=== PATIENT | male | born 1945 | race Caucasian/White ===

== ENCOUNTER 2017-07-04 10:50 | Inpatient (IN) | payer MEDICARE, MEDICAID ==
[~2017-07-04] VITALS: Ht 175.3 cm; Wt 68.0 kg
[2017-07-04] MEDS ORDERED: SODIUM CHLORIDE 0.9% 1,000 ML IV ONE (11:09)
[2017-07-04 11:42] LABS: CHLORIDE 110 mEq/L (98-107); INR 1.1; PROTHROMBIN TIME 11.4 sec (9.4-11.6)
[2017-07-04 11:47] LABS: BASOPHILS % 0.3 % (0.0-2.0); EOSINOPHILS % 0.4 % (0.0-5.0); HEMATOCRIT. 32.3 % (42.0-52.0); HEMOGLOBIN. 10.7 g/dL (14.0-18.0); LYMPHOCYTES % 10.9 % (20.0-50.0); MEAN CORPUSCULAR HEMOGLOBIN 28.7 pg (28.0-32.0); MEAN CORPUSCULAR VOLUME 86.7 fL (80.0-94.0); MEAN PLATELET VOLUME 8.8 fl (7.4-10.4); MONOCYTES % 5.9 % (2.0-8.0); NEUTROPHILS % 82.5 % (40.0-76.0); PLATELET 334 x1000/uL (130-400); RED BLOOD CELL COUNT 3.73 mill/uL (4.7-6.1)
[2017-07-04 12:49] LABS: CLARITY URINE CLEAR (CLEAR); COLOR URINE YELLOW (YELLOW); KETONES URINE TRACE (NEGATIVE); LEUKOCYTE ESTERASE URINE NEGATIVE (NEGATIVE); NITRITE URINE NEGATIVE (NEGATIVE); OCCULT BLOOD URINE 1+ (NEGATIVE); PROTEIN URINE 2+ (NEGATIVE); SPECIFIC GRAVITY URINE 1.021 (1.005-1.030)
[2017-07-04] MEDS ORDERED: ACETAMINOPHEN 325MG TABLET PO ONE (13:45)
[2017-07-04] MEDS ORDERED: LORAZEPAM 2MG/ML CPJ IV PRN (18:00)
[2017-07-04] MEDS ORDERED: ONDANSETRON HCL 4MG/2ML INJ IV PRN (18:00)
[2017-07-04] MEDS ORDERED: ACETAMINOPHEN 325MG TABLET PO PRN (18:00)
[2017-07-04] MEDS ORDERED: HYDROCODONE/ACETAMINOPHEN 5/325MG TABLET PO PRN (18:00)
[2017-07-04] MEDS ORDERED: DOCUSATE SODIUM 100MG CAPSULE PO PRN (18:00)
[2017-07-04] MEDS ORDERED: IPRATROPIUM/ALBUTEROL 0.5-3(2.5)MG/3ML NEB INH PRN (18:00)
[2017-07-04] MEDS ORDERED: GUAIFENESIN 200MG/10ML SUGAR FREE UDC PO PRN (18:00)
[2017-07-04] MEDS ORDERED: CLONIDINE 0.1MG TABLET PO PRN (18:00)
[2017-07-04] MEDS ORDERED: DIPHENHYDRAMINE 50MG/ML VIAL IV PRN (18:00)
[2017-07-04] MEDS ORDERED: MAGNESIUM/ALUMINUM HYDROXIDE/SIMETHICONE 30ML UDC PO PRN (18:00)
[2017-07-04] MEDS ORDERED: MORPHINE SULFATE 4 MG/ML CPJ (NOT FOR IM USE) IV PRN (18:15)
[2017-07-04] MEDS: SODIUM CHLORIDE 0.45% 1,000 ML IV SCH (18:52)
[2017-07-04] MEDS ORDERED: LEVOFLOXACIN 500MG PREMIX 100 ML IV NR (18:53)
[2017-07-04] MEDS ORDERED: NA PHOS,M-B/NA PHOS,DI-BA ENEMA 118ML PR PRN (20:00)
[2017-07-04 22:28] LABS: CHLORIDE 111 mEq/L (98-107)
[2017-07-05] VITALS (7 sets, daily range): BP systolic 130–164; BP diastolic 55–71
[2017-07-05] MEDS: SODIUM CHLORIDE 0.45% 1,000 ML IV SCH ×2 (03:56→12:09)
[2017-07-05 07:40] LABS: BASOPHILS % 0.3 % (0.0-2.0); EOSINOPHILS % 1.9 % (0.0-5.0); LYMPHOCYTES % 9.2 % (20.0-50.0); MEAN CORPUSCULAR HEMOGLOBIN 28.1 pg (28.0-32.0); MEAN CORPUSCULAR VOLUME 86.9 fL (80.0-94.0); MEAN PLATELET VOLUME 9.1 fl (7.4-10.4); MONOCYTES % 5.3 % (2.0-8.0); NEUTROPHILS % 83.3 % (40.0-76.0); PLATELET 316 x1000/uL (130-400); RED BLOOD CELL COUNT 3.92 mill/uL (4.7-6.1); RED CELL DISTRIBUTION WIDTH 14.1 % (11.6-14.6)
[2017-07-05 08:23] LABS: CHLORIDE 109 mEq/L (98-107)
[2017-07-05 08:39] LABS: HDL CHOLESTEROL 27 mg/dL (40-59); LDL CHOLESTEROL 64 mg/dL (5-100)
[2017-07-05] MEDS: ASPIRIN 81MG EC TABLET PO SCH (09:54)
[2017-07-05] MEDS: ENOXAPARIN 40MG/0.4ML SYR SUBCUT SCH (09:55)
[2017-07-05] MEDS ORDERED: LEVOFLOXACIN 500MG PREMIX 100 ML IV SCH (19:00)
[2017-07-05] MEDS ORDERED: HYDR-4005 PO (19:17)
[2017-07-05] MEDS ORDERED: QUET25TA PO (19:17)
[2017-07-05] MEDS ORDERED: LEVO50TA8 PO (19:17)
[2017-07-05] MEDS ORDERED: DOCU-150 PO (19:17)
[2017-07-05] MEDS ORDERED: CYCL5TAB PO (19:17)
[2017-07-05] MEDS ORDERED: LANTUSUD SUBCUT (19:17)
[2017-07-05] MEDS ORDERED: BENA20TA10 PO (19:17)
[2017-07-05] MEDS ORDERED: FAMO20TA8 PO (19:17)
[2017-07-05] MEDS ORDERED: ASPI-1159 PO (19:17)
[2017-07-05] MEDS ORDERED: DIVAL250 PO ×2 (19:17)
[2017-07-05] MEDS ORDERED: GABA800T97 PO (19:17)
[2017-07-05] MEDS ORDERED: SENN-22 PO (19:17)
[2017-07-05] MEDS ORDERED: GLIP2.5T3 PO (19:17)
[2017-07-05] MEDS ORDERED: HYDR-4001 PO (19:17)
[2017-07-05] MEDS ORDERED: ATOR40TA70 PO (19:17)
[2017-07-05] MEDS ORDERED: DEXTROSE 50% WATER 50ML SYRINGE IV PRN (20:15)
[2017-07-05] MEDS: BLOOD SUGAR DIAGNOSTIC STRIP TEST SCH (21:00)
[2017-07-05] MEDS: INSULIN LISPRO 100 UNITS/ML SUBCUT SCH (21:25)
[2017-07-06] VITALS: BP 109/70
[2017-07-06 04:00] VITALS: BP 146/59
[2017-07-06] MEDS: BLOOD SUGAR DIAGNOSTIC STRIP TEST SCH ×2 (06:06→12:37)
[2017-07-06] MEDS: INSULIN LISPRO 100 UNITS/ML SUBCUT SCH ×2 (06:06→12:52)
[2017-07-06] MEDS: SODIUM CHLORIDE 0.45% 1,000 ML IV SCH (06:06)
[2017-07-06] MEDS: ENOXAPARIN 40MG/0.4ML SYR SUBCUT SCH (09:23)
[2017-07-06] MEDS: ASPIRIN 81MG EC TABLET PO SCH (09:23)
[2017-07-06 12:08] VITALS: BP 151/66
== END 2017-07-06 14:45 | DRG 871 ==
LOC: ER 11:16 → 5WST 14:09 → EDBEDREQTM 14:10 → EDBEDREQ 14:10 → ENRESERV 22:33
PROVIDERS: ADMIT Internal Medicine; ATTEND Internal Medicine
DX: A41.9 Sepsis, unspecified organism (principal); G93.41 Metabolic encephalopathy; N17.0 Acute kidney failure with tubular necrosis; E46 Unspecified protein-calorie malnutrition; E87.0 Hyperosmolality and hypernatremia; E11.9 Type 2 diabetes mellitus without complications; E86.0 Dehydration; I10 Essential (primary) hypertension; J44.9 Chronic obstructive pulmonary disease, unspecified; Z79.82 Long term (current) use of aspirin; Z79.899 Other long term (current) drug therapy; Z68.22 Body mass index [BMI] 22.0-22.9, adult
CPT/HCPCS: 36415; 71045; 80048; 80061; 82962; 83605; 84484; 93005; 96361; 96365; 99285; A4565; J1650; J1815; J1956; J7030; A4315

== ENCOUNTER 2018-09-26 14:15 | Inpatient (IN) | payer MEDICARE, MEDICAID ==
[~2018-09-26] VITALS: Ht 175.3 cm; Wt 55.8 kg
[~2018-09-26 14:15] MED LIST: ASPI-1159 PO; ATOR40TA70 PO; BENA20TA10 PO; CYCL5TAB PO; DIVAL250 PO; DOCU-150 PO; FAMO20TA8 PO; GABA800T97 PO; GLIP2.5T3 PO; HYDR-4001 PO; HYDR-4005 PO; LANTUSUD SUBCUT; LEVO50TA8 PO; QUET25TA PO; SENN-22 PO
[2018-09-26] MEDS ORDERED: METHYLPREDNISOLONE SOD SUCC 125 MG/2 ML VIAL IV STA (14:26)
[2018-09-26] MEDS ORDERED: IPRATROPIUM BROMIDE (0.02%) 0.5MG/2.5ML NEB HHN STA (14:26)
[2018-09-26] MEDS ORDERED: ALBUTEROL (0.083%) 2.5MG/3ML NEB HHN STA (14:26)
[2018-09-26] MEDS ORDERED: VANCOMYCIN 1 G PREMIX 200 ML IV ONE (14:30)
[2018-09-26] MEDS ORDERED: PIPERACILLIN/TAZ 3.375G PREMIX 50 ML IV ONE (14:30)
[2018-09-26] MEDS ORDERED: SODIUM CHLORIDE 0.9% 1000ML BAG (SEPSIS BOLUS) IV ONE (14:30)
[2018-09-26 14:42] LABS: BASOPHILS % 1.2 % (0.0-2.0); EOSINOPHILS % 0.4 % (0.0-5.0); HEMATOCRIT. 34.9 % (42.0-52.0); HEMOGLOBIN. 11.4 g/dL (14.0-18.0); LYMPHOCYTES % 17.3 % (20.0-50.0); MEAN CORPUSCULAR HEMOGLOBIN 29.1 pg (28.0-32.0); MEAN CORPUSCULAR VOLUME 89.1 fL (80.0-94.0); MEAN PLATELET VOLUME 9.5 fl (7.4-10.4); MONOCYTES % 5.3 % (2.0-8.0); NEUTROPHILS % 75.8 % (40.0-76.0); PLATELET 236 x1000/uL (130-400); RED BLOOD CELL COUNT 3.92 mill/uL (4.7-6.1); RED CELL DISTRIBUTION WIDTH 14.4 % (11.6-14.6)
[2018-09-26 14:45] LABS: CHLORIDE 112 mEq/L (98-107)
[2018-09-26 14:48] LABS: PARTIAL THROMBOPLASTIN TIME 20.7 sec (23.4-31.0); PROTHROMBIN TIME 9.9 sec (9.6-11.0)
[2018-09-26 15:33] LABS: BG BASE EXCESS -3.9 mmol/L (-2.0-2.0); BG BILEVEL POS AIRWAY PRESSURE ST=15/5; BG CARBOXYHEMOGLOBIN 0.3 % (0.5-1.5); BG DEOXYHEMOGLOBIN 3.9 % (0.0-5.0); BG FRACTION INSPIRED OXYGEN 60; BG HCO3 ACT 20.5 mmol/L (22.0-26.0); BG METHEMOGLOBIN 0.1 % (0.0-1.5); BG OXYGEN SATURATION 96.1 % (92.0-98.5); BG OXYHEMOGLOBIN 95.7 % (94.0-97.0); BG PH 7.386 (7.350-7.450); BG PO2 89.6 mmHg (75.0-100.0); BG PRESSURE SUPPORT 10; BG SAMPLE SITE RIGHT RADIAL; BG TOTAL HEMOGLOBIN 11.4 g/dL (12.0-18.0); BG VENT MODE MASK - BIPAP; BG VENT RATE 16 set
[2018-09-26 15:33] LABS: CLARITY URINE TURBID (CLEAR); COLOR URINE YELLOW (YELLOW); KETONES URINE TRACE (NEGATIVE); LEUKOCYTE ESTERASE URINE 3+ (NEGATIVE); NITRITE URINE NEGATIVE (NEGATIVE); OCCULT BLOOD URINE 3+ (NEGATIVE); PROTEIN URINE 2+ (NEGATIVE); SPECIFIC GRAVITY URINE 1.016 (1.005-1.030); UROBILINOGEN URINE 0.2 E.U./dL (0.2-1.0)
[2018-09-26] MEDS ORDERED: IPRATROPIUM/ALBUTEROL 0.5-3(2.5)MG/3ML NEB HHN PRN (16:30)
[2018-09-26] MEDS ORDERED: MEROPENEM 500 MG in SODIUM CHLORIDE 0.9% 50 ML IV SCH (16:30)
[2018-09-26] MEDS ORDERED: SODIUM CHLORIDE 10% FOR INH 15ML VIAL NEB INH SCH (16:30)
[2018-09-26] MEDS ORDERED: BUDESONIDE 0.5MG/2ML NEB HHN SCH (16:30)
[2018-09-26] MEDS ORDERED: ONDANSETRON HCL 4MG/2ML INJ IV PRN (19:15)
[2018-09-26] MEDS ORDERED: ACETAMINOPHEN 325MG TABLET PO PRN (19:15)
[2018-09-26] MEDS ORDERED: HYDROCODONE/ACETAMINOPHEN 5/325MG TABLET PO PRN (19:15)
[2018-09-26] MEDS ORDERED: CLONIDINE 0.1MG TABLET PO PRN (19:15)
[2018-09-26] MEDS ORDERED: GUAIFENESIN 200MG/10ML SUGAR FREE UDC PO PRN (19:15)
[2018-09-26] MEDS ORDERED: DOCUSATE SODIUM 100MG CAPSULE PO PRN (19:15)
[2018-09-26] MEDS ORDERED: HYDRALAZINE 20MG/ML VIAL IV PRN (19:15)
[2018-09-26] MEDS ORDERED: MAGNESIUM/ALUMINUM HYDROXIDE/SIMETHICONE 30ML UDC PO PRN (19:15)
[2018-09-26] MEDS: IPRATROPIUM/ALBUTEROL 0.5-3(2.5)MG/3ML NEB HHN SCH (20:56)
[2018-09-26] MEDS ORDERED: NA PHOS,M-B/NA PHOS,DI-BA ENEMA 118ML PR PRN (22:00)
[2018-09-26] MEDS ORDERED: HYDROMORPHONE HCL/PF 2MG/ML CPJ IV PRN (22:00)
[2018-09-26 23:32] LABS: CREATINE KINASE 160 IU/L (39-308)
[2018-09-26 23:33] LABS: CREATINE KINASE MB FRACTION 2.9 ng/mL (0.5-3.6)
[2018-09-27] VITALS (7 sets, daily range): BP systolic 91–130; BP diastolic 35–66
[2018-09-27] MEDS: IPRATROPIUM/ALBUTEROL 0.5-3(2.5)MG/3ML NEB HHN SCH ×6 (01:30→21:29)
[2018-09-27] MEDS ORDERED: SODIUM CHLORIDE 10% FOR INH 15ML VIAL NEB INH SCH (02:00)
[2018-09-27] MEDS: MEROPENEM 1,000 MG in SODIUM CHLORIDE 0.9% 100 ML IV SCH ×2 (04:49→17:27)
[2018-09-27] MEDS: SODIUM CHLORIDE 0.9% INJ 3ML FLUSH IVF SCH ×3 (06:10→23:54)
[2018-09-27 06:12] LABS: HEMATOCRIT. 30.3 % (42.0-52.0); HEMOGLOBIN. 10.1 g/dL (14.0-18.0); MEAN CORPUSCULAR HEMOGLOBIN 29.9 pg (28.0-32.0); MEAN CORPUSCULAR VOLUME 89.8 fL (80.0-94.0); MEAN PLATELET VOLUME 9.9 fl (7.4-10.4); PLATELET 199 x1000/uL (130-400); RED BLOOD CELL COUNT 3.37 mill/uL (4.7-6.1); RED CELL DISTRIBUTION WIDTH 14.4 % (11.6-14.6)
[2018-09-27 08:33] LABS: CHLORIDE 113 mEq/L (98-107)
[2018-09-27 08:41] LABS: LDL CHOLESTEROL 67 mg/dL (5-100)
[2018-09-27 08:42] LABS: CREATINE KINASE 158 IU/L (39-308)
[2018-09-27 08:43] LABS: CREATINE KINASE MB FRACTION 2.7 ng/mL (0.5-3.6)
[2018-09-27 08:44] LABS: HDL CHOLESTEROL 36 mg/dL (40-59); T4 FREE 1.11 ng/dL (0.76-1.46)
[2018-09-27] MEDS: ACETYLCYSTEINE 100MG/ML 10% VIAL 4ML INH SCH ×2 (08:50→17:10)
[2018-09-27] MEDS: BUDESONIDE 0.5MG/2ML NEB HHN SCH ×2 (08:51→21:29)
[2018-09-27 09:35] LABS: CREATINE KINASE 171 IU/L (39-308)
[2018-09-27] MEDS: ENOXAPARIN 40MG/0.4ML SYR SUBCUT SCH (11:14)
[2018-09-27 11:30] LABS: PLATELET ESTIMATE NORMAL
[2018-09-27] MEDS ORDERED: VANCOMYCIN 1250MG in DEXTROSE 5% WATER 250ML IV SCH (12:00)
[2018-09-27] MEDS ORDERED: DEXTROSE 50% WATER 50ML SYRINGE IV PRN (12:00)
[2018-09-27] MEDS: INSULIN LISPRO 100 UNITS/ML SUBCUT SCH ×3 (12:15→23:54)
[2018-09-27] MEDS: VANCOMYCIN 750 MG PREMIX 150 ML IV SCH ×2 (12:37→21:48)
[2018-09-27] MEDS: NEOMY SULF/BACITRAC ZN/POLY OINT 28GM TOP SCH (12:41)
[2018-09-27] MEDS: SODIUM CHLORIDE 0.45% 1,000 ML IV SCH ×2 (12:47→23:55)
[2018-09-27] MEDS: BLOOD SUGAR DIAGNOSTIC STRIP TEST SCH ×2 (17:27→23:54)
[2018-09-28] VITALS: BP 108/58
[2018-09-28] MEDS: DIPHENHYDRAMINE 50MG/ML VIAL IV PRN (00:06)
[2018-09-28] MEDS: ACETYLCYSTEINE 100MG/ML 10% VIAL 4ML INH SCH ×3 (01:16→17:26)
[2018-09-28] MEDS: IPRATROPIUM/ALBUTEROL 0.5-3(2.5)MG/3ML NEB HHN SCH ×5 (01:16→17:25)
[2018-09-28] MEDS: MEROPENEM 1,000 MG in SODIUM CHLORIDE 0.9% 100 ML IV SCH ×2 (03:11→13:54)
[2018-09-28 04:00] VITALS: BP 120/56
[2018-09-28] MEDS: SODIUM CHLORIDE 0.9% INJ 3ML FLUSH IVF SCH ×2 (06:27→14:30)
[2018-09-28] MEDS: BLOOD SUGAR DIAGNOSTIC STRIP TEST SCH ×4 (06:27→20:47)
[2018-09-28] MEDS: INSULIN LISPRO 100 UNITS/ML SUBCUT SCH ×4 (06:39→20:52)
[2018-09-28 08:00] VITALS: BP_SYST 132; BP_SYST 147; BP_DIAS 59; BP_DIAS 75
[2018-09-28] MEDS: NEOMY SULF/BACITRAC ZN/POLY OINT 28GM TOP SCH (09:28)
[2018-09-28] MEDS: ENOXAPARIN 40MG/0.4ML SYR SUBCUT SCH (09:31)
[2018-09-28] MEDS: LORAZEPAM 2MG/ML CPJ IV PRN ×2 (09:33→18:47)
[2018-09-28] MEDS: BUDESONIDE 0.5MG/2ML NEB HHN SCH (10:27)
[2018-09-28 12:00] VITALS: BP 113/56
[2018-09-28] MEDS: SODIUM CHLORIDE 0.45% 1,000 ML IV SCH (12:18)
[2018-09-28 12:57] LABS: BASOPHILS % 0.6 % (0.0-2.0); EOSINOPHILS % 1.9 % (0.0-5.0); HEMATOCRIT. 27.6 % (42.0-52.0); HEMOGLOBIN. 9.2 g/dL (14.0-18.0); LYMPHOCYTES % 17.1 % (20.0-50.0); MEAN CORPUSCULAR HEMOGLOBIN 29.6 pg (28.0-32.0); MEAN CORPUSCULAR VOLUME 88.5 fL (80.0-94.0); MEAN PLATELET VOLUME 9.5 fl (7.4-10.4); MONOCYTES % 4.7 % (2.0-8.0); NEUTROPHILS % 75.7 % (40.0-76.0); PLATELET 203 x1000/uL (130-400); RED BLOOD CELL COUNT 3.11 mill/uL (4.7-6.1); RED CELL DISTRIBUTION WIDTH 14.6 % (11.6-14.6)
[2018-09-28 13:10] LABS: CHLORIDE 111 mEq/L (98-107)
[2018-09-28] MEDS ORDERED: VANCOMYCIN 750 MG PREMIX 150 ML IV SCH ×2 (14:00→18:00)
[2018-09-28 15:14] LABS: ANTI-NUCLEAR ANTIBODIES DIRECT Positive (Negative)
[2018-09-28 16:00] VITALS: BP 147/75
[2018-09-28 20:00] VITALS: BP 151/80
[2018-09-29] VITALS: BP 137/95
[2018-09-29] MEDS: LORAZEPAM 2MG/ML CPJ IV PRN ×3 (00:04→12:11)
[2018-09-29] MEDS: SODIUM CHLORIDE 0.45% 1,000 ML IV SCH (00:06)
[2018-09-29] MEDS: BUDESONIDE 0.5MG/2ML NEB HHN SCH (01:14)
[2018-09-29] MEDS: ACETYLCYSTEINE 100MG/ML 10% VIAL 4ML INH SCH ×2 (01:14→08:08)
[2018-09-29] MEDS: IPRATROPIUM/ALBUTEROL 0.5-3(2.5)MG/3ML NEB HHN SCH ×3 (01:15→12:00)
[2018-09-29] MEDS: MEROPENEM 1,000 MG in SODIUM CHLORIDE 0.9% 100 ML IV SCH (02:36)
[2018-09-29 04:00] VITALS: BP 136/89
[2018-09-29] MEDS: BLOOD SUGAR DIAGNOSTIC STRIP TEST SCH ×2 (06:09→11:54)
[2018-09-29] MEDS: INSULIN LISPRO 100 UNITS/ML SUBCUT SCH ×2 (06:13→12:15)
[2018-09-29 06:20] LABS: CHLORIDE 106 mEq/L (98-107)
[2018-09-29 06:36] LABS: BASOPHILS % 1.1 % (0.0-2.0); EOSINOPHILS % 2.9 % (0.0-5.0); HEMOGLOBIN. 10.5 g/dL (14.0-18.0); LYMPHOCYTES % 18.6 % (20.0-50.0); MEAN CORPUSCULAR HEMOGLOBIN 30.1 pg (28.0-32.0); MEAN CORPUSCULAR VOLUME 88.5 fL (80.0-94.0); MEAN PLATELET VOLUME 9.5 fl (7.4-10.4); MONOCYTES % 5.4 % (2.0-8.0); PLATELET 217 x1000/uL (130-400); RED CELL DISTRIBUTION WIDTH 13.7 % (11.6-14.6)
[2018-09-29 06:37] LABS: HEMATOCRIT. 30.9 % (42.0-52.0)
[2018-09-29 07:19] LABS: COMPLEMENT C3 122 mg/dL (82-167)
[2018-09-29 08:00] VITALS: BP 117/71
[2018-09-29] MEDS: ENOXAPARIN 40MG/0.4ML SYR SUBCUT SCH (08:26)
[2018-09-29] MEDS: NEOMY SULF/BACITRAC ZN/POLY OINT 28GM TOP SCH (08:26)
[2018-09-29] MEDS: DIPHENHYDRAMINE 50MG/ML VIAL IV PRN (09:46)
[2018-09-29 12:00] VITALS: BP 121/80
[2018-09-29] MEDS ORDERED: QUETIAPINE FUMARATE 25MG TABLET PO SCH (12:45)
[2018-09-29 14:15] VITALS: BP 152/56
== END 2018-09-29 17:00 | DRG 871 ==
LOC: ER 14:15 → 5WST 17:37 → EDBEDREQ 17:43 → ENRESERV 20:55 → CANRESERV 20:55 → EDBEDREQSVC 21:05 → ENRESERV 22:38 → 5WST 09-27 00:37
PROVIDERS: ADMIT Internal Medicine; ATTEND Internal Medicine
PROC: 5A09357 Assistance with Respiratory Ventilation, Less than 24 Consecutive Hours, Continuous Positive Airway Pressure (ICD-10-PCS; principal; 2018-09-26)
DX: A41.51 Sepsis due to Escherichia coli [E. coli] (principal); J96.01 Acute respiratory failure with hypoxia; N17.0 Acute kidney failure with tubular necrosis; G93.41 Metabolic encephalopathy; R65.21 Severe sepsis with septic shock; N39.0 Urinary tract infection, site not specified; J44.1 Chronic obstructive pulmonary disease with (acute) exacerbation; E87.2 Acidosis; E44.0 Moderate protein-calorie malnutrition; Z68.1 Body mass index [BMI] 19.9 or less, adult; Z74.01 Bed confinement status; B96.89 Other specified bacterial agents as the cause of diseases classified elsewhere; D64.9 Anemia, unspecified; E03.9 Hypothyroidism, unspecified; E11.22 Type 2 diabetes mellitus with diabetic chronic kidney disease; E11.621 Type 2 diabetes mellitus with foot ulcer; E11.65 Type 2 diabetes mellitus with hyperglycemia; E78.5 Hyperlipidemia, unspecified; L97.519 Non-pressure chronic ulcer of other part of right foot with unspecified severity; E86.9 Volume depletion, unspecified; I12.9 Hypertensive chronic kidney disease with stage 1 through stage 4 chronic kidney disease, or unspecified chronic kidney disease; R65.20 Severe sepsis without septic shock; I49.3 Ventricular premature depolarization; N18.9 Chronic kidney disease, unspecified; Z16.12 Extended spectrum beta lactamase (ESBL) resistance; E87.70 Fluid overload, unspecified; Z79.1 Long term (current) use of non-steroidal anti-inflammatories (NSAID); Z79.899 Other long term (current) drug therapy; Z79.82 Long term (current) use of aspirin
CPT/HCPCS: 36415; 36600; 71045; 76770; 80048; 80061; 80202; 82375; 82550; 82553; 82805; 82962; 83605; 83880; 84145; 84439; 84443; 84484; 86038; 86160; 87077; 87186; 93005; 93971; 94640; 96374; 96375; 97161; 99285; A6261; J0360; J1170; J1200; J1650; J1815; J2060; J2185; J2543; J2930; J3370; J7030; J7050; J7060; J7131; J7608; J7611; J7620; J7626; A4315

== ENCOUNTER 2018-10-25 15:15 | Inpatient (IN) | payer MEDICARE, MEDICAID ==
[~2018-10-25] VITALS: Ht 193 cm; Wt 48.7 kg
[~2018-10-25 15:15] MED LIST changes: -ASPI-1159 PO; +ASPI-1393 PO
[2018-10-25] MEDS ORDERED: SODIUM CHLORIDE 0.9% 500 ML IV ONE (16:08)
[2018-10-25 16:40] LABS: BASOPHILS % 1.1 % (0.0-2.0); EOSINOPHILS % 3.1 % (0.0-5.0); HEMATOCRIT. 34.3 % (42.0-52.0); HEMOGLOBIN. 11.3 g/dL (14.0-18.0); LYMPHOCYTES % 28.7 % (20.0-50.0); MEAN CORPUSCULAR HEMOGLOBIN 29.8 pg (28.0-32.0); MEAN CORPUSCULAR VOLUME 90.4 fL (80.0-94.0); MEAN PLATELET VOLUME 8.9 fl (7.4-10.4); MONOCYTES % 8.4 % (2.0-8.0); NEUTROPHILS % 58.7 % (40.0-76.0); PLATELET 257 x1000/uL (130-400); RED BLOOD CELL COUNT 3.79 mill/uL (4.7-6.1); RED CELL DISTRIBUTION WIDTH 14.1 % (11.6-14.6)
[2018-10-25 16:49] LABS: CHLORIDE 112 mEq/L (98-107)
[2018-10-25] MEDS ORDERED: ACETAMINOPHEN 325MG TABLET PO PRN (19:00)
[2018-10-25] MEDS ORDERED: CLONIDINE 0.1MG TABLET PO PRN (19:00)
[2018-10-25] MEDS ORDERED: HYDROCODONE/ACETAMINOPHEN 10/325MG TABLET PO PRN (19:00)
[2018-10-25] MEDS ORDERED: ONDANSETRON HCL 4MG/2ML INJ IV PRN (19:00)
[2018-10-25] MEDS ORDERED: DOCUSATE SODIUM 100MG CAPSULE PO PRN (19:00)
[2018-10-25] MEDS ORDERED: GUAIFENESIN 200MG/10ML SUGAR FREE UDC PO PRN (19:00)
[2018-10-25] MEDS ORDERED: DIPHENHYDRAMINE 50MG/ML VIAL IV PRN (19:00)
[2018-10-25] MEDS ORDERED: MAGNESIUM/ALUMINUM HYDROXIDE/SIMETHICONE 30ML UDC PO PRN (19:00)
[2018-10-25] MEDS ORDERED: NA PHOS,M-B/NA PHOS,DI-BA ENEMA 118ML PR PRN (19:00)
[2018-10-25] MEDS ORDERED: IPRATROPIUM/ALBUTEROL 0.5-3(2.5)MG/3ML NEB INH PRN (19:00)
[2018-10-25] MEDS ORDERED: HYDRALAZINE 20MG/ML VIAL IV PRN (19:00)
[2018-10-25] MEDS ORDERED: DEXTROSE 50% WATER 50ML SYRINGE IV PRN (19:30)
[2018-10-25 21:30] VITALS: BP 119/99
[2018-10-25] MEDS ORDERED: HYDROMORPHONE HCL/PF 2MG/ML CPJ IV PRN (22:28)
[2018-10-25] MEDS: BLOOD SUGAR DIAGNOSTIC STRIP TEST SCH (22:50)
[2018-10-25] MEDS: INSULIN LISPRO 100 UNITS/ML SUBCUT SCH (23:04)
[2018-10-25] MEDS: SODIUM CHLORIDE 0.9% INJ 3ML FLUSH IVF SCH (23:05)
[2018-10-25] MEDS: DEXTROSE 5% WATER 1,000 ML IV SCH (23:05)
[2018-10-25 23:14] VITALS: BP 119/99
[2018-10-26] VITALS: BP 115/88
[2018-10-26 00:08] LABS: CLARITY URINE TURBID (CLEAR); COLOR URINE YELLOW (YELLOW); KETONES URINE NEGATIVE (NEGATIVE); LEUKOCYTE ESTERASE URINE 3+ (NEGATIVE); NITRITE URINE NEGATIVE (NEGATIVE); OCCULT BLOOD URINE TRACE (NEGATIVE); PH URINE 8.5 (4.5-8.0); PROTEIN URINE 2+ (NEGATIVE); SPECIFIC GRAVITY URINE 1.019 (1.005-1.030); UROBILINOGEN URINE 0.2 E.U./dL (0.2-1.0)
[2018-10-26] MEDS ORDERED: GABA800T97 PO (02:44)
[2018-10-26] MEDS ORDERED: SENN8.6T60 PO (02:44)
[2018-10-26] MEDS ORDERED: HYDR-4001 PO (02:44)
[2018-10-26] MEDS ORDERED: INSU100I28 SQ (02:44)
[2018-10-26] MEDS ORDERED: BENA20TA10 PO (02:44)
[2018-10-26] MEDS ORDERED: ASA5EC PO (02:44)
[2018-10-26] MEDS ORDERED: DOCU-150 PO (02:44)
[2018-10-26] MEDS ORDERED: FAMO20TA8 PO (02:44)
[2018-10-26] MEDS ORDERED: ATOR40TA70 PO (02:44)
[2018-10-26] MEDS ORDERED: HYDR-4005 PO (02:44)
[2018-10-26] MEDS ORDERED: QUET25TA PO (02:44)
[2018-10-26] MEDS ORDERED: CYCL5TAB PO (02:44)
[2018-10-26] MEDS ORDERED: DIVA-73 PO ×2 (02:44)
[2018-10-26] MEDS ORDERED: LEVO50TA8 PO (02:44)
[2018-10-26 04:00] VITALS: BP_SYST 108; BP_SYST 122; BP_DIAS 65; BP_DIAS 99
[2018-10-26] MEDS: SODIUM CHLORIDE 0.9% INJ 3ML FLUSH IVF SCH ×3 (06:01→21:26)
[2018-10-26 06:48] LABS: BASOPHILS % 0.7 % (0.0-2.0); EOSINOPHILS % 3.3 % (0.0-5.0); HEMATOCRIT. 30.5 % (42.0-52.0); HEMOGLOBIN. 10.1 g/dL (14.0-18.0); LYMPHOCYTES % 23.3 % (20.0-50.0); MEAN CORPUSCULAR HEMOGLOBIN 30.2 pg (28.0-32.0); MEAN CORPUSCULAR VOLUME 91.2 fL (80.0-94.0); MEAN PLATELET VOLUME 9.4 fl (7.4-10.4); MONOCYTES % 7.5 % (2.0-8.0); NEUTROPHILS % 65.2 % (40.0-76.0); PLATELET 254 x1000/uL (130-400); RED BLOOD CELL COUNT 3.35 mill/uL (4.7-6.1)
[2018-10-26 07:11] LABS: CHLORIDE 110 mEq/L (98-107)
[2018-10-26 07:39] LABS: LDL CHOLESTEROL 78 mg/dL (5-100)
[2018-10-26 07:40] LABS: CREATINE KINASE 47 IU/L (39-308); CREATINE KINASE MB FRACTION 2.1 ng/mL (0.5-3.6); T4 FREE 0.94 ng/dL (0.76-1.46)
[2018-10-26] MEDS: BLOOD SUGAR DIAGNOSTIC STRIP TEST SCH ×4 (07:40→21:25)
[2018-10-26 07:42] LABS: HDL CHOLESTEROL 23 mg/dL (40-59)
[2018-10-26 08:00] VITALS: BP 104/55
[2018-10-26] MEDS: INSULIN LISPRO 100 UNITS/ML SUBCUT SCH ×4 (09:46→21:00)
[2018-10-26] MEDS: ENOXAPARIN 40MG/0.4ML SYR SUBCUT SCH (11:49)
[2018-10-26 12:00] VITALS: BP 100/49
[2018-10-26] MEDS: LORAZEPAM 2MG/ML CPJ IV PRN ×2 (12:36→23:30)
[2018-10-26 16:00] VITALS: BP 103/60
[2018-10-26 16:57] LABS: PHOSPHORUS 3.3 mg/dL (2.5-4.9)
[2018-10-26] MEDS: DEXTROSE 5% WATER 1,000 ML IV SCH (19:46)
[2018-10-26 20:00] VITALS: BP 110/55
[2018-10-27] VITALS: BP 95/44
[2018-10-27 04:00] VITALS: BP 123/57
[2018-10-27 05:30] LABS: BASOPHILS % 1.1 % (0.0-2.0); EOSINOPHILS % 4.6 % (0.0-5.0); HEMATOCRIT. 30.8 % (42.0-52.0); HEMOGLOBIN. 10.4 g/dL (14.0-18.0); LYMPHOCYTES % 26.1 % (20.0-50.0); MEAN CORPUSCULAR HEMOGLOBIN 30.1 pg (28.0-32.0); MEAN CORPUSCULAR VOLUME 89.4 fL (80.0-94.0); MEAN PLATELET VOLUME 9.5 fl (7.4-10.4); MONOCYTES % 8.4 % (2.0-8.0); NEUTROPHILS % 59.8 % (40.0-76.0); PLATELET 252 x1000/uL (130-400); RED BLOOD CELL COUNT 3.45 mill/uL (4.7-6.1); RED CELL DISTRIBUTION WIDTH 13.5 % (11.6-14.6)
[2018-10-27] MEDS: SODIUM CHLORIDE 0.9% INJ 3ML FLUSH IVF SCH ×3 (06:41→22:04)
[2018-10-27] MEDS: BLOOD SUGAR DIAGNOSTIC STRIP TEST SCH ×4 (06:41→21:00)
[2018-10-27 08:00] VITALS: BP 125/86
[2018-10-27] MEDS: ENOXAPARIN 40MG/0.4ML SYR SUBCUT SCH (09:30)
[2018-10-27] MEDS: INSULIN LISPRO 100 UNITS/ML SUBCUT SCH ×4 (09:31→21:00)
[2018-10-27 12:00] VITALS: BP 132/67
[2018-10-27] MEDS: LORAZEPAM 2MG/ML CPJ IV PRN ×3 (12:23→22:03)
[2018-10-27] MEDS: DEXTROSE 5% WATER 1,000 ML IV SCH (16:37)
[2018-10-27 20:00] VITALS: BP 147/89
[2018-10-28] VITALS (8 sets, daily range): BP systolic 114–151; BP diastolic 54–81
[2018-10-28] MEDS: LORAZEPAM 2MG/ML CPJ IV PRN (02:07)
[2018-10-28] MEDS: SODIUM CHLORIDE 0.9% INJ 3ML FLUSH IVF SCH ×2 (06:57→14:00)
[2018-10-28] MEDS: BLOOD SUGAR DIAGNOSTIC STRIP TEST SCH ×3 (06:57→16:59)
[2018-10-28] MEDS: ENOXAPARIN 40MG/0.4ML SYR SUBCUT SCH (08:15)
[2018-10-28] MEDS: INSULIN LISPRO 100 UNITS/ML SUBCUT SCH ×3 (08:16→18:10)
[2018-10-28] MEDS ORDERED: SULFAMETHOXAZOLE/TRIMETHOPRIM 800/160MG TABLET PO SCH (09:00)
[2018-10-28] MEDS: DEXTROSE 5% WATER 1,000 ML IV SCH (17:00)
== END 2018-10-28 21:00 | DRG 315 ==
LOC: ER 15:15 → 7WST 17:34 → EDBEDREQTM 17:39 → EDBEDREQ 17:39 → ENRESERV 20:26 → 7WST 22:00
PROVIDERS: ADMIT Internal Medicine; ATTEND Internal Medicine
DX: I95.9 Hypotension, unspecified (principal); N39.0 Urinary tract infection, site not specified; E87.0 Hyperosmolality and hypernatremia; Z68.1 Body mass index [BMI] 19.9 or less, adult; E44.0 Moderate protein-calorie malnutrition; J44.9 Chronic obstructive pulmonary disease, unspecified; F03.90 Unspecified dementia, unspecified severity, without behavioral disturbance, psychotic disturbance, mood disturbance, and anxiety; E11.9 Type 2 diabetes mellitus without complications; E03.9 Hypothyroidism, unspecified; I49.3 Ventricular premature depolarization; R79.89 Other specified abnormal findings of blood chemistry; D64.9 Anemia, unspecified; I10 Essential (primary) hypertension; Z79.82 Long term (current) use of aspirin; Z79.4 Long term (current) use of insulin; Z79.899 Other long term (current) drug therapy
CPT/HCPCS: 36415; 71045; 80048; 80061; 82550; 82553; 82962; 83036; 83605; 83735; 83880; 84100; 84439; 84443; 84484; 87077; 87186; 93005; 93306; 96374; 99285; J1170; J1650; J1815; J2060; J7030; J7070

== ENCOUNTER 2018-11-11 13:56 | Inpatient (IN) | payer MEDICARE, MEDICAID ==
[2018-11-11] VITALS (22 sets, daily range): BP systolic 80–122; BP diastolic 41–92
[~2018-11-11] VITALS: Ht 165.1 cm; Wt 60.4 kg
[~2018-11-11 13:56] MED LIST changes: +ASA5EC PO; -ASPI-1393 PO; +DIVA-73 PO; -DIVAL250 PO; -GLIP2.5T3 PO; +INSU100I28 SQ; -LANTUSUD SUBCUT; -SENN-22 PO; +SENN8.6T60 PO
[2018-11-11] MEDS ORDERED: SODIUM CHLORIDE 0.9% 1,000 ML IV ONE (14:14)
[2018-11-11] MEDS ORDERED: ONDANSETRON HCL 4MG/2ML INJ IV STA (14:14)
[2018-11-11 14:38] LABS: BASOPHILS % 0.6 % (0.0-2.0); EOSINOPHILS % 0.1 % (0.0-5.0); HEMATOCRIT. 31.5 % (42.0-52.0); HEMOGLOBIN. 10.2 g/dL (14.0-18.0); LYMPHOCYTES % 16.2 % (20.0-50.0); MEAN CORPUSCULAR HEMOGLOBIN 29.7 pg (28.0-32.0); MEAN PLATELET VOLUME 9.7 fl (7.4-10.4); MONOCYTES % 4.1 % (2.0-8.0); PLATELET 262 x1000/uL (130-400); RED BLOOD CELL COUNT 3.43 mill/uL (4.7-6.1); RED CELL DISTRIBUTION WIDTH 13.8 % (11.6-14.6)
[2018-11-11 14:43] LABS: CHLORIDE 111 mEq/L (98-107)
[2018-11-11] MEDS ORDERED: PROPOFOL 10MG/ML 100ML 100 ML IV SCH (14:45)
[2018-11-11] MEDS ORDERED: ETOMIDATE 2MG/ML 10ML VIAL IV ONE (15:00)
[2018-11-11] MEDS ORDERED: SUCCINYLCHOLINE CHLORIDE 200MG/10ML IV ONE (15:00)
[2018-11-11 15:34] LABS: BG BASE EXCESS -7.7 mmol/L (-2.0-2.0); BG CARBOXYHEMOGLOBIN 0.3 % (0.5-1.5); BG DEOXYHEMOGLOBIN 0.6 % (0.0-5.0); BG FRACTION INSPIRED OXYGEN 100; BG HCO3 ACT 17.7 mmol/L (22.0-26.0); BG METHEMOGLOBIN 0.3 % (0.0-1.5); BG OXYGEN SATURATION 99.4 % (92.0-98.5); BG OXYHEMOGLOBIN 98.8 % (94.0-97.0); BG PCO2 35.6 mmHg (35.0-45.0); BG PH 7.314 (7.350-7.450); BG PO2 495.8 mmHg (75.0-100.0); BG SAMPLE SITE RIGHT RADIAL; BG TIDAL VOLUME(mL) 500 mL; BG TOTAL HEMOGLOBIN 10.1 g/dL (12.0-18.0); BG VENT MODE VENT - A/C; BG VENT RATE 16 set
[2018-11-11 15:36] LABS: CLARITY URINE TURBID (CLEAR); COLOR URINE DARK YELLOW (YELLOW); KETONES URINE TRACE (NEGATIVE); LEUKOCYTE ESTERASE URINE 3+ (NEGATIVE); NITRITE URINE NEGATIVE (NEGATIVE); OCCULT BLOOD URINE 2+ (NEGATIVE); PH URINE 7.5 (4.5-8.0); PROTEIN URINE 2+ (NEGATIVE); SPECIFIC GRAVITY URINE 1.021 (1.005-1.030)
[2018-11-11] MEDS ORDERED: SODIUM CHLORIDE 0.9% 1000ML BAG (SEPSIS BOLUS) IV ONE (15:45)
[2018-11-11] MEDS ORDERED: PIPERACILLIN/TAZ 3.375G PREMIX 50 ML IV ONE (15:45)
[2018-11-11] MEDS ORDERED: VANCOMYCIN 1 G PREMIX 200 ML IV ONE (15:45)
[2018-11-11] MEDS ORDERED: HYDROCODONE/ACETAMINOPHEN 5/325MG TABLET PO PRN (19:30)
[2018-11-11] MEDS ORDERED: ACETAMINOPHEN 650MG/20.3ML UDC PO ONE (19:30)
[2018-11-11] MEDS ORDERED: NOREPINEPHRINE 16 MG in DEXT 5% WATER 234 ML IV PRN ×4 (20:00)
[2018-11-11] MEDS: ENOXAPARIN 30MG/0.3ML SYR SUBCUT SCH (20:00)
[2018-11-11 20:22] LABS: BG BASE EXCESS -7.9 mmol/L (-2.0-2.0); BG CARBOXYHEMOGLOBIN 0.3 % (0.5-1.5); BG DEOXYHEMOGLOBIN 1.7 % (0.0-5.0); BG FRACTION INSPIRED OXYGEN 50; BG HCO3 ACT 17.8 mmol/L (22.0-26.0); BG METHEMOGLOBIN 0.4 % (0.0-1.5); BG OXYGEN SATURATION 98.3 % (92.0-98.5); BG OXYHEMOGLOBIN 97.6 % (94.0-97.0); BG PCO2 36.9 mmHg (35.0-45.0); BG PH 7.301 (7.350-7.450); BG SAMPLE SITE RIGHT RADIAL; BG TIDAL VOLUME(mL) 500 mL; BG TOTAL HEMOGLOBIN 9.2 g/dL (12.0-18.0); BG VENT MODE VENT - A/C; BG VENT RATE 16 set
[2018-11-11] MEDS: DEXT 5%/0.9% NACL 1,000 ML IV SCH (20:26)
[2018-11-11] MEDS ORDERED: SODIUM BICARBONATE 8.4% 1 MEQ/ML 50ML SYR IV NR (21:30)
[2018-11-11] MEDS: PROPOFOL 10MG/ML 100ML 100 ML IV PRN (22:34)
[2018-11-12] VITALS (69 sets, daily range): BP systolic 94–171; BP diastolic 48–97
[2018-11-12] MEDS ORDERED: PIPERACILLIN/TAZOBACTAM 3.375GM/50ML PREMIX IV SCH
[2018-11-12] MEDS: PIPERACILLIN/TAZ 2.25G PREMIX 50 ML IV SCH ×5 (00:09→23:36)
[2018-11-12] MEDS ORDERED: DIVA-73 PO (00:47)
[2018-11-12] MEDS ORDERED: ARGI1POW17 PO (00:47)
[2018-11-12] MEDS ORDERED: ASCO500C15 PO (00:47)
[2018-11-12] MEDS ORDERED: ASPI-1393 PO (00:47)
[2018-11-12] MEDS ORDERED: LEVO50TA8 PO (00:47)
[2018-11-12] MEDS ORDERED: LEVVL SQ (00:47)
[2018-11-12] MEDS ORDERED: GABA-533 PO (00:47)
[2018-11-12] MEDS ORDERED: RISP0.5T19 PO (00:47)
[2018-11-12] MEDS ORDERED: MULT-1146 PO (00:47)
[2018-11-12] MEDS ORDERED: LISI-186 PO (00:47)
[2018-11-12] MEDS ORDERED: ZINC220T PO (00:47)
[2018-11-12] MEDS ORDERED: FAMO20TA8 PO (00:47)
[2018-11-12] MEDS ORDERED: GLIP5TAB12 PO (00:47)
[2018-11-12] MEDS ORDERED: LACT1CAP68 PO (00:47)
[2018-11-12] MEDS ORDERED: BISA10SU8 PO (00:47)
[2018-11-12 05:40] LABS: BASOPHILS % 0.7 % (0.0-2.0); EOSINOPHILS % 1.8 % (0.0-5.0); HEMATOCRIT. 29.8 % (42.0-52.0); HEMOGLOBIN. 9.8 g/dL (14.0-18.0); LYMPHOCYTES % 19.8 % (20.0-50.0); MEAN CORPUSCULAR HEMOGLOBIN 29.9 pg (28.0-32.0); MEAN CORPUSCULAR VOLUME 90.9 fL (80.0-94.0); MEAN PLATELET VOLUME 9.7 fl (7.4-10.4); MONOCYTES % 6.1 % (2.0-8.0); NEUTROPHILS % 71.6 % (40.0-76.0); PLATELET 226 x1000/uL (130-400); RED BLOOD CELL COUNT 3.28 mill/uL (4.7-6.1); RED CELL DISTRIBUTION WIDTH 13.8 % (11.6-14.6)
[2018-11-12] MEDS: DEXT 5%/0.9% NACL 1,000 ML IV SCH ×2 (06:41→16:37)
[2018-11-12 07:56] LABS: BG BASE EXCESS -1.6 mmol/L (-2.0-2.0); BG DEOXYHEMOGLOBIN 1.7 % (0.0-5.0); BG FRACTION INSPIRED OXYGEN 50; BG HCO3 ACT 20.8 mmol/L (22.0-26.0); BG METHEMOGLOBIN 0.1 % (0.0-1.5); BG OXYGEN SATURATION 98.3 % (92.0-98.5); BG OXYHEMOGLOBIN 98.2 % (94.0-97.0); BG PCO2 26.7 mmHg (35.0-45.0); BG PO2 130.1 mmHg (75.0-100.0); BG SAMPLE SITE RIGHT BRACHIAL; BG TIDAL VOLUME(mL) 500 mL; BG TOTAL HEMOGLOBIN 8.3 g/dL (12.0-18.0); BG VENT MODE VENT - A/C; BG VENT RATE 20 set
[2018-11-12] MEDS: PANTOPRAZOLE SODIUM 40 MG/VIAL IV SCH (08:37)
[2018-11-12] MEDS ORDERED: ENOXAPARIN 40MG/0.4ML SYR SUBCUT SCH (09:00)
[2018-11-12 09:29] LABS: T4 FREE 0.89 ng/dL (0.76-1.46)
[2018-11-12] MEDS: PROPOFOL 10MG/ML 100ML 100 ML IV PRN ×2 (12:58→23:37)
[2018-11-12 18:18] LABS: CREATINE KINASE MB FRACTION 1.7 ng/mL (0.5-3.6)
[2018-11-12] MEDS: IPRATROPIUM/ALBUTEROL 0.5-3(2.5)MG/3ML NEB HHN PRN (19:57)
[2018-11-12] MEDS: ENOXAPARIN 30MG/0.3ML SYR SUBCUT SCH (20:41)
[2018-11-12 23:08] LABS: CREATINE KINASE 84 IU/L (39-308)
[2018-11-12 23:09] LABS: CREATINE KINASE MB FRACTION 1.5 ng/mL (0.5-3.6)
[2018-11-13] VITALS (94 sets, daily range): BP systolic 114–186; BP diastolic 44–107
[2018-11-13] MEDS: DEXT 5%/0.9% NACL 1,000 ML IV SCH ×2 (04:16→13:32)
[2018-11-13 05:37] LABS: HEMATOCRIT. 29.5 % (42.0-52.0); HEMOGLOBIN. 9.8 g/dL (14.0-18.0); LYMPHOCYTES % 21.3 % (20.0-50.0); MEAN CORPUSCULAR HEMOGLOBIN 30.3 pg (28.0-32.0); MEAN PLATELET VOLUME 9.8 fl (7.4-10.4); MONOCYTES % 5.5 % (2.0-8.0); NEUTROPHILS % 69.2 % (40.0-76.0); PLATELET 229 x1000/uL (130-400); RED BLOOD CELL COUNT 3.24 mill/uL (4.7-6.1); RED CELL DISTRIBUTION WIDTH 14.1 % (11.6-14.6)
[2018-11-13 05:54] LABS: CHLORIDE 121 mEq/L (98-107)
[2018-11-13 06:04] LABS: CREATINE KINASE 71 IU/L (39-308)
[2018-11-13 06:06] LABS: CREATINE KINASE MB FRACTION 1.2 ng/mL (0.5-3.6)
[2018-11-13] MEDS: PIPERACILLIN/TAZ 2.25G PREMIX 50 ML IV SCH (06:18)
[2018-11-13] MEDS: PROPOFOL 10MG/ML 100ML 100 ML IV PRN ×3 (06:18→19:55)
[2018-11-13 08:21] LABS: BG BASE EXCESS -1.8 mmol/L (-2.0-2.0); BG CARBOXYHEMOGLOBIN 0.3 % (0.5-1.5); BG FRACTION INSPIRED OXYGEN 500; BG HCO3 ACT 19.9 mmol/L (22.0-26.0); BG METHEMOGLOBIN 0.2 % (0.0-1.5); BG OXYHEMOGLOBIN 98.5 % (94.0-97.0); BG PCO2 24.5 mmHg (35.0-45.0); BG PH 7.528 (7.350-7.450); BG PO2 237.4 mmHg (75.0-100.0); BG SAMPLE SITE RIGHT BRACHIAL; BG TIDAL VOLUME(mL) 500 mL; BG TOTAL HEMOGLOBIN 9.7 g/dL (12.0-18.0); BG VENT MODE VENT - A/C; BG VENT RATE 20 set
[2018-11-13] MEDS: PANTOPRAZOLE SODIUM 40 MG/VIAL IV SCH (08:35)
[2018-11-13] MEDS ORDERED: DEXTROSE 50% WATER 50ML SYRINGE IV PRN (09:45)
[2018-11-13] MEDS: HYDRALAZINE HCL 25MG TABLET NG SCH ×3 (10:26→21:14)
[2018-11-13] MEDS: BLOOD SUGAR DIAGNOSTIC STRIP TEST SCH ×3 (12:27→23:01)
[2018-11-13] MEDS: PIPERACILLIN/TAZ 3.375G PREMIX 50 ML IV SCH ×3 (13:23→23:17)
[2018-11-13] MEDS: INSULIN LISPRO 100 UNITS/ML SUBCUT SCH ×3 (13:24→23:17)
[2018-11-13] MEDS ORDERED: POTASSIUM CHLORIDE 20MEQ/PACKET PO SCH (14:00)
[2018-11-13] MEDS ORDERED: POTASSIUM CHLORIDE 20MEQ/PACKET PO ONE (14:15)
[2018-11-13 17:14] LABS: PHOSPHORUS 1.5 mg/dL (2.5-4.9)
[2018-11-13] MEDS: IPRATROPIUM/ALBUTEROL 0.5-3(2.5)MG/3ML NEB HHN PRN (20:30)
[2018-11-13] MEDS: ENOXAPARIN 40MG/0.4ML SYR SUBCUT SCH (20:34)
[2018-11-14] VITALS (59 sets, daily range): BP systolic 85–171; BP diastolic 45–154
[2018-11-14] MEDS: DEXT 5%/0.9% NACL 1,000 ML IV SCH (01:37)
[2018-11-14] MEDS: PROPOFOL 10MG/ML 100ML 100 ML IV PRN ×4 (01:37→20:25)
[2018-11-14 05:33] LABS: BASOPHILS % 0.9 % (0.0-2.0); EOSINOPHILS % 3.9 % (0.0-5.0); HEMATOCRIT. 27.5 % (42.0-52.0); HEMOGLOBIN. 9.3 g/dL (14.0-18.0); LYMPHOCYTES % 24.9 % (20.0-50.0); MEAN CORPUSCULAR HEMOGLOBIN 30.6 pg (28.0-32.0); MEAN CORPUSCULAR VOLUME 90.7 fL (80.0-94.0); MEAN PLATELET VOLUME 9.4 fl (7.4-10.4); MONOCYTES % 6.8 % (2.0-8.0); NEUTROPHILS % 63.5 % (40.0-76.0); PLATELET 205 x1000/uL (130-400); RED BLOOD CELL COUNT 3.03 mill/uL (4.7-6.1); RED CELL DISTRIBUTION WIDTH 13.6 % (11.6-14.6)
[2018-11-14] MEDS: BLOOD SUGAR DIAGNOSTIC STRIP TEST SCH ×3 (05:43→18:31)
[2018-11-14] MEDS: PIPERACILLIN/TAZ 3.375G PREMIX 50 ML IV SCH ×3 (05:49→17:19)
[2018-11-14 05:50] LABS: CHLORIDE 119 mEq/L (98-107)
[2018-11-14] MEDS: INSULIN LISPRO 100 UNITS/ML SUBCUT SCH ×4 (05:50→23:44)
[2018-11-14] MEDS: HYDRALAZINE HCL 25MG TABLET NG SCH ×3 (05:50→21:34)
[2018-11-14] MEDS ORDERED: POTASSIUM CHLORIDE 20MEQ/PACKET PO SCH (08:00)
[2018-11-14] MEDS: PANTOPRAZOLE SODIUM 40 MG/VIAL IV SCH (08:35)
[2018-11-14 09:40] LABS: BG CARBOXYHEMOGLOBIN 0.2 % (0.5-1.5); BG DEOXYHEMOGLOBIN 1.8 % (0.0-5.0); BG FRACTION INSPIRED OXYGEN 40; BG HCO3 ACT 19.3 mmol/L (22.0-26.0); BG METHEMOGLOBIN 0.4 % (0.0-1.5); BG OXYGEN SATURATION 98.2 % (92.0-98.5); BG OXYHEMOGLOBIN 97.6 % (94.0-97.0); BG PCO2 29.3 mmHg (35.0-45.0); BG PH 7.437 (7.350-7.450); BG PO2 137.7 mmHg (75.0-100.0); BG SAMPLE SITE RIGHT RADIAL; BG TIDAL VOLUME(mL) 500 mL; BG TOTAL HEMOGLOBIN 10.2 g/dL (12.0-18.0); BG VENT MODE VENT - A/C; BG VENT RATE 12 set
[2018-11-14] MEDS ORDERED: PROPOFOL 10MG/ML 100ML 100 ML IV PRN (10:00)
[2018-11-14] MEDS ORDERED: IPRATROPIUM/ALBUTEROL 0.5-3(2.5)MG/3ML NEB HHN PRN (10:00)
[2018-11-14 11:01] LABS: PHOSPHORUS 2.7 mg/dL (2.5-4.9)
[2018-11-14 11:47] LABS: CLARITY URINE CLEAR (CLEAR); COLOR URINE YELLOW (YELLOW); KETONES URINE NEGATIVE (NEGATIVE); LEUKOCYTE ESTERASE URINE 1+ (NEGATIVE); NITRITE URINE NEGATIVE (NEGATIVE); OCCULT BLOOD URINE NEGATIVE (NEGATIVE); PROTEIN URINE 1+ (NEGATIVE); SPECIFIC GRAVITY URINE 1.021 (1.005-1.030)
[2018-11-14] MEDS: LEVOTHYROXINE SODIUM 50MCG TABLET PO SCH (12:11)
[2018-11-14] MEDS: IPRATROPIUM/ALBUTEROL 0.5-3(2.5)MG/3ML NEB HHN SCH ×3 (12:15→20:04)
[2018-11-14] MEDS: DEXT 5%/0.45% NACL 1000ML 1,000 ML IV SCH ×2 (12:17→18:00)
[2018-11-14] MEDS: RISPERIDONE 0.5MG TABLET PO SCH (17:19)
[2018-11-14] MEDS ORDERED: QUETIAPINE FUMARATE 50MG TABLET PO SCH (21:00)
[2018-11-14] MEDS: ENOXAPARIN 40MG/0.4ML SYR SUBCUT SCH (21:33)
[2018-11-15] VITALS (38 sets, daily range): BP systolic 103–178; BP diastolic 51–90
[2018-11-15] MEDS: DEXT 5%/0.45% NACL 1000ML 1,000 ML IV SCH
[2018-11-15] MEDS: PIPERACILLIN/TAZ 3.375G PREMIX 50 ML IV SCH ×5 (00:03→23:09)
[2018-11-15] MEDS: IPRATROPIUM/ALBUTEROL 0.5-3(2.5)MG/3ML NEB HHN SCH ×6 (00:12→20:27)
[2018-11-15] MEDS: BLOOD SUGAR DIAGNOSTIC STRIP TEST SCH ×4 (00:16→17:56)
[2018-11-15] MEDS: INSULIN LISPRO 100 UNITS/ML SUBCUT SCH ×4 (05:18→23:09)
[2018-11-15] MEDS: HYDRALAZINE HCL 25MG TABLET NG SCH ×3 (05:32→21:29)
[2018-11-15 05:56] LABS: BASOPHILS % 0.9 % (0.0-2.0); EOSINOPHILS % 4.5 % (0.0-5.0); HEMATOCRIT. 28.8 % (42.0-52.0); HEMOGLOBIN. 9.6 g/dL (14.0-18.0); LYMPHOCYTES % 26.2 % (20.0-50.0); MEAN CORPUSCULAR VOLUME 90.1 fL (80.0-94.0); MEAN PLATELET VOLUME 9.3 fl (7.4-10.4); MONOCYTES % 7.5 % (2.0-8.0); NEUTROPHILS % 60.9 % (40.0-76.0); PLATELET 226 x1000/uL (130-400)
[2018-11-15 06:04] LABS: CHLORIDE 117 mEq/L (98-107)
[2018-11-15 06:15] LABS: PHOSPHORUS 3.5 mg/dL (2.5-4.9)
[2018-11-15] MEDS: PANTOPRAZOLE SODIUM 40 MG/VIAL IV SCH (08:24)
[2018-11-15] MEDS: RISPERIDONE 0.5MG TABLET PO SCH (08:24)
[2018-11-15] MEDS: LEVOTHYROXINE SODIUM 50MCG TABLET PO SCH (08:24)
[2018-11-15 08:32] LABS: BG BASE EXCESS -3.8 mmol/L (-2.0-2.0); BG DEOXYHEMOGLOBIN 1.5 % (0.0-5.0); BG FRACTION INSPIRED OXYGEN 40; BG HCO3 ACT 20.6 mmol/L (22.0-26.0); BG METHEMOGLOBIN 0.3 % (0.0-1.5); BG OXYGEN SATURATION 98.5 % (92.0-98.5); BG OXYHEMOGLOBIN 98.2 % (94.0-97.0); BG PCO2 34.6 mmHg (35.0-45.0); BG PH 7.392 (7.350-7.450); BG PO2 148.5 mmHg (75.0-100.0); BG SAMPLE SITE RIGHT RADIAL; BG TIDAL VOLUME(mL) 500 mL; BG TOTAL HEMOGLOBIN 9.2 g/dL (12.0-18.0); BG VENT MODE VENT - A/C; BG VENT RATE 12 set
[2018-11-15] MEDS ORDERED: MAGNESIUM 2 G PREMIX 50 ML IV ONE (10:00)
[2018-11-15] MEDS ORDERED: POTASSIUM CHLORIDE 20MEQ/PACKET PO SCH (10:00)
[2018-11-15] MEDS: DEXTROSE 5% WATER 1,000 ML IV SCH ×2 (10:00→17:46)
[2018-11-15] MEDS: PROPOFOL 10MG/ML 100ML 100 ML IV PRN (18:15)
[2018-11-15] MEDS ORDERED: RISPERIDONE 1MG TABLET NG SCH (21:00)
[2018-11-15] MEDS: ENOXAPARIN 40MG/0.4ML SYR SUBCUT SCH (21:29)
[2018-11-16] VITALS (46 sets, daily range): BP systolic 113–186; BP diastolic 52–97
[2018-11-16] MEDS: IPRATROPIUM/ALBUTEROL 0.5-3(2.5)MG/3ML NEB HHN SCH ×6 (00:09→20:15)
[2018-11-16] MEDS: BLOOD SUGAR DIAGNOSTIC STRIP TEST SCH ×5 (00:19→23:43)
[2018-11-16] MEDS: PROPOFOL 10MG/ML 100ML 100 ML IV PRN (04:47)
[2018-11-16] MEDS: PIPERACILLIN/TAZ 3.375G PREMIX 50 ML IV SCH ×4 (05:08→23:34)
[2018-11-16] MEDS: HYDRALAZINE HCL 25MG TABLET NG SCH ×3 (05:08→21:28)
[2018-11-16] MEDS: INSULIN LISPRO 100 UNITS/ML SUBCUT SCH ×4 (05:09→23:44)
[2018-11-16 05:30] LABS: BASOPHILS % 0.9 % (0.0-2.0); EOSINOPHILS % 4.9 % (0.0-5.0); HEMATOCRIT. 24.7 % (42.0-52.0); HEMOGLOBIN. 8.2 g/dL (14.0-18.0); LYMPHOCYTES % 20.3 % (20.0-50.0); MEAN CORPUSCULAR HEMOGLOBIN 29.9 pg (28.0-32.0); MEAN CORPUSCULAR VOLUME 89.7 fL (80.0-94.0); MEAN PLATELET VOLUME 9.2 fl (7.4-10.4); MONOCYTES % 5.8 % (2.0-8.0); NEUTROPHILS % 68.1 % (40.0-76.0); PLATELET 196 x1000/uL (130-400); RED BLOOD CELL COUNT 2.75 mill/uL (4.7-6.1); RED CELL DISTRIBUTION WIDTH 13.9 % (11.6-14.6)
[2018-11-16 05:34] LABS: CHLORIDE 114 mEq/L (98-107)
[2018-11-16 05:40] LABS: PHOSPHORUS 2.6 mg/dL (2.5-4.9)
[2018-11-16] MEDS ORDERED: POTASSIUM CHLORIDE 20MEQ/PACKET PO NR (07:08)
[2018-11-16] MEDS ORDERED: LORAZEPAM 2MG/ML CPJ IV PRN (08:30)
[2018-11-16] MEDS: LEVOTHYROXINE SODIUM 50MCG TABLET PO SCH (08:53)
[2018-11-16] MEDS: PANTOPRAZOLE SODIUM 40 MG/VIAL IV SCH (08:53)
[2018-11-16] MEDS: HYDROMORPHONE HCL/PF 2MG/ML CPJ IV PRN ×2 (09:34→18:17)
[2018-11-16] MEDS ORDERED: CLONIDINE 0.1MG TABLET PO PRN (10:00)
[2018-11-16] MEDS ORDERED: VANCOMYCIN 1 G PREMIX 200 ML IV SCH (10:00)
[2018-11-16] MEDS: RISPERIDONE 0.5MG TABLET PO SCH ×2 (10:33→17:33)
[2018-11-16] MEDS: LOSARTAN POTASSIUM 50 MG TABLET NG SCH (10:33)
[2018-11-16] MEDS: ACETYLCYSTEINE 100MG/ML 10% VIAL 4ML INH SCH (15:51)
[2018-11-16] MEDS: VANCOMYCIN 750 MG PREMIX 150 ML IV SCH (18:17)
[2018-11-16] MEDS: ENOXAPARIN 40MG/0.4ML SYR SUBCUT SCH (21:28)
[2018-11-17] VITALS (36 sets, daily range): BP systolic 111–185; BP diastolic 60–112
[2018-11-17] MEDS: IPRATROPIUM/ALBUTEROL 0.5-3(2.5)MG/3ML NEB HHN SCH ×6 (00:17→20:09)
[2018-11-17] MEDS: ACETYLCYSTEINE 100MG/ML 10% VIAL 4ML INH SCH ×3 (00:18→15:31)
[2018-11-17] MEDS: HYDROMORPHONE HCL/PF 2MG/ML CPJ IV PRN ×3 (00:40→23:18)
[2018-11-17] MEDS: VANCOMYCIN 750 MG PREMIX 150 ML IV SCH ×2 (02:42→13:05)
[2018-11-17] MEDS: PIPERACILLIN/TAZ 3.375G PREMIX 50 ML IV SCH ×4 (05:11→23:14)
[2018-11-17] MEDS: HYDRALAZINE HCL 25MG TABLET NG SCH ×3 (05:12→21:07)
[2018-11-17] MEDS: BLOOD SUGAR DIAGNOSTIC STRIP TEST SCH ×4 (05:25→23:22)
[2018-11-17] MEDS: INSULIN LISPRO 100 UNITS/ML SUBCUT SCH ×4 (05:26→23:22)
[2018-11-17 05:32] LABS: CHLORIDE 110 mEq/L (98-107)
[2018-11-17 05:37] LABS: BASOPHILS % 0.7 % (0.0-2.0); EOSINOPHILS % 3.9 % (0.0-5.0); HEMOGLOBIN. 9.3 g/dL (14.0-18.0); MEAN CORPUSCULAR HEMOGLOBIN 29.8 pg (28.0-32.0); MEAN CORPUSCULAR VOLUME 89.6 fL (80.0-94.0); MEAN PLATELET VOLUME 8.9 fl (7.4-10.4); NEUTROPHILS % 71.4 % (40.0-76.0); PLATELET 223 x1000/uL (130-400); RED BLOOD CELL COUNT 3.13 mill/uL (4.7-6.1)
[2018-11-17] MEDS: LOSARTAN POTASSIUM 50 MG TABLET NG SCH (08:04)
[2018-11-17] MEDS: LEVOTHYROXINE SODIUM 50MCG TABLET PO SCH (08:04)
[2018-11-17] MEDS: PANTOPRAZOLE SODIUM 40 MG/VIAL IV SCH (08:05)
[2018-11-17] MEDS: RISPERIDONE 0.5MG TABLET PO SCH ×2 (08:05→18:35)
[2018-11-17] MEDS: ACETAMINOPHEN 650MG/20.3ML UDC PO PRN (13:33)
[2018-11-17] MEDS: ENOXAPARIN 40MG/0.4ML SYR SUBCUT SCH (20:15)
[2018-11-18] VITALS (25 sets, daily range): BP systolic 98–175; BP diastolic 49–94
[2018-11-18] MEDS: IPRATROPIUM/ALBUTEROL 0.5-3(2.5)MG/3ML NEB HHN SCH ×6 (00:14→20:24)
[2018-11-18] MEDS: ACETYLCYSTEINE 100MG/ML 10% VIAL 4ML INH SCH ×3 (00:15→16:04)
[2018-11-18] MEDS: VANCOMYCIN 750 MG PREMIX 150 ML IV SCH ×2 (01:12→13:37)
[2018-11-18] MEDS: PIPERACILLIN/TAZ 3.375G PREMIX 50 ML IV SCH ×4 (05:10→23:30)
[2018-11-18] MEDS: HYDRALAZINE HCL 25MG TABLET NG SCH ×4 (05:11→21:53)
[2018-11-18] MEDS: INSULIN LISPRO 100 UNITS/ML SUBCUT SCH ×3 (05:22→17:41)
[2018-11-18] MEDS: BLOOD SUGAR DIAGNOSTIC STRIP TEST SCH ×3 (05:22→17:41)
[2018-11-18 06:23] LABS: BASOPHILS % 0.9 % (0.0-2.0); EOSINOPHILS % 4.4 % (0.0-5.0); HEMATOCRIT. 25.9 % (42.0-52.0); HEMOGLOBIN. 8.8 g/dL (14.0-18.0); LYMPHOCYTES % 15.7 % (20.0-50.0); MEAN CORPUSCULAR HEMOGLOBIN 30.5 pg (28.0-32.0); MEAN CORPUSCULAR VOLUME 89.7 fL (80.0-94.0); MEAN PLATELET VOLUME 8.7 fl (7.4-10.4); MONOCYTES % 5.4 % (2.0-8.0); NEUTROPHILS % 73.6 % (40.0-76.0); PLATELET 225 x1000/uL (130-400); RED BLOOD CELL COUNT 2.89 mill/uL (4.7-6.1); RED CELL DISTRIBUTION WIDTH 13.6 % (11.6-14.6)
[2018-11-18 06:32] LABS: CHLORIDE 106 mEq/L (98-107)
[2018-11-18] MEDS ORDERED: POTASSIUM CHLORIDE 20MEQ/PACKET PO NR (07:35)
[2018-11-18] MEDS: LEVOTHYROXINE SODIUM 50MCG TABLET PO SCH (08:04)
[2018-11-18] MEDS: LOSARTAN POTASSIUM 50 MG TABLET NG SCH (08:04)
[2018-11-18] MEDS: PANTOPRAZOLE SODIUM 40 MG/VIAL IV SCH (08:04)
[2018-11-18] MEDS: RISPERIDONE 0.5MG TABLET PO SCH ×2 (08:04→17:18)
[2018-11-18] MEDS: HYDROMORPHONE HCL/PF 2MG/ML CPJ IV PRN ×2 (11:13→17:18)
[2018-11-18] MEDS: ENOXAPARIN 40MG/0.4ML SYR SUBCUT SCH (21:43)
[2018-11-19] VITALS (25 sets, daily range): BP systolic 94–175; BP diastolic 42–119
[2018-11-19] MEDS: ACETYLCYSTEINE 100MG/ML 10% VIAL 4ML INH SCH ×3 (00:25→16:23)
[2018-11-19] MEDS: IPRATROPIUM/ALBUTEROL 0.5-3(2.5)MG/3ML NEB HHN SCH ×6 (00:26→20:46)
[2018-11-19] MEDS: HYDROMORPHONE HCL/PF 2MG/ML CPJ IV PRN (01:18)
[2018-11-19] MEDS: VANCOMYCIN 750 MG PREMIX 150 ML IV SCH (01:25)
[2018-11-19] MEDS: PIPERACILLIN/TAZ 3.375G PREMIX 50 ML IV SCH ×4 (05:39→23:35)
[2018-11-19] MEDS: HYDRALAZINE HCL 25MG TABLET NG SCH ×3 (05:40→21:40)
[2018-11-19] MEDS: INSULIN LISPRO 100 UNITS/ML SUBCUT SCH ×4 (06:00→18:00)
[2018-11-19] MEDS: BLOOD SUGAR DIAGNOSTIC STRIP TEST SCH ×4 (06:11→18:40)
[2018-11-19 06:14] LABS: CHLORIDE 106 mEq/L (98-107)
[2018-11-19 06:24] LABS: PHOSPHORUS 2.2 mg/dL (2.5-4.9)
[2018-11-19 06:29] LABS: BASOPHILS % 1.1 % (0.0-2.0); EOSINOPHILS % 4.2 % (0.0-5.0); HEMATOCRIT. 26.5 % (42.0-52.0); HEMOGLOBIN. 8.9 g/dL (14.0-18.0); LYMPHOCYTES % 18.1 % (20.0-50.0); MEAN CORPUSCULAR HEMOGLOBIN 30.2 pg (28.0-32.0); MEAN CORPUSCULAR VOLUME 89.6 fL (80.0-94.0); MONOCYTES % 7.7 % (2.0-8.0); NEUTROPHILS % 68.9 % (40.0-76.0); PLATELET 228 x1000/uL (130-400); RED BLOOD CELL COUNT 2.95 mill/uL (4.7-6.1); RED CELL DISTRIBUTION WIDTH 13.3 % (11.6-14.6)
[2018-11-19] MEDS ORDERED: POTASSIUM PHOS,M-BASIC-D-BASIC 15 MMOL in DEXT 5% WATER 245 ML IV NR (08:00)
[2018-11-19] MEDS: LEVOTHYROXINE SODIUM 50MCG TABLET PO SCH (08:22)
[2018-11-19] MEDS: LOSARTAN POTASSIUM 50 MG TABLET NG SCH (08:22)
[2018-11-19] MEDS: RISPERIDONE 0.5MG TABLET PO SCH ×2 (08:22→16:58)
[2018-11-19] MEDS: PANTOPRAZOLE SODIUM 40 MG/VIAL IV SCH (08:22)
[2018-11-19 09:19] LABS: BG BASE EXCESS 0.3 mmol/L (-2.0-2.0); BG CARBOXYHEMOGLOBIN 0.2 % (0.5-1.5); BG DEOXYHEMOGLOBIN 3.1 % (0.0-5.0); BG FRACTION INSPIRED OXYGEN 40; BG HCO3 ACT 22.8 mmol/L (22.0-26.0); BG METHEMOGLOBIN 0.2 % (0.0-1.5); BG OXYGEN SATURATION 96.9 % (92.0-98.5); BG OXYHEMOGLOBIN 96.5 % (94.0-97.0); BG PCO2 29.3 mmHg (35.0-45.0); BG PH 7.508 (7.350-7.450); BG PO2 85.1 mmHg (75.0-100.0); BG SAMPLE SITE RIGHT RADIAL; BG TIDAL VOLUME(mL) 500 mL; BG TOTAL HEMOGLOBIN 10.1 g/dL (12.0-18.0); BG VENT MODE VENT - A/C; BG VENT RATE 12 set
[2018-11-19 10:30] LABS: BG BASE EXCESS -0.5 mmol/L (-2.0-2.0); BG CARBOXYHEMOGLOBIN 0.3 % (0.5-1.5); BG DEOXYHEMOGLOBIN 1.1 % (0.0-5.0); BG FRACTION INSPIRED OXYGEN 40; BG HCO3 ACT 23.3 mmol/L (22.0-26.0); BG METHEMOGLOBIN 0.2 % (0.0-1.5); BG OXYGEN SATURATION 98.9 % (92.0-98.5); BG OXYHEMOGLOBIN 98.4 % (94.0-97.0); BG PH 7.441 (7.350-7.450); BG PRESSURE SUPPORT 8; BG SAMPLE SITE RIGHT RADIAL; BG TOTAL HEMOGLOBIN 9.8 g/dL (12.0-18.0); BG VENT MODE VENT - CPAP
[2018-11-19] MEDS ORDERED: RACEPINEPHRINE 2.25% 0.5ML NEB VIAL HHN PRN (12:15)
[2018-11-19 14:24] LABS: BG BASE EXCESS 0.8 mmol/L (-2.0-2.0); BG CARBOXYHEMOGLOBIN 0.3 % (0.5-1.5); BG DEOXYHEMOGLOBIN 0.4 % (0.0-5.0); BG FRACTION INSPIRED OXYGEN 40; BG HCO3 ACT 24.4 mmol/L (22.0-26.0); BG METHEMOGLOBIN 0.1 % (0.0-1.5); BG OXYGEN SATURATION 99.6 % (92.0-98.5); BG OXYHEMOGLOBIN 99.2 % (94.0-97.0); BG PCO2 34.9 mmHg (35.0-45.0); BG PH 7.462 (7.350-7.450); BG PO2 164.1 mmHg (75.0-100.0); BG SAMPLE SITE RIGHT RADIAL; BG TOTAL HEMOGLOBIN 9.1 g/dL (12.0-18.0); BG VENT MODE MASK - AEROSOL
[2018-11-19] MEDS ORDERED: MORPHINE SULFATE 2 MG/ML CPJ (NOT FOR IM USE) IV PRN (15:00)
[2018-11-19] MEDS ORDERED: BISACODYL 10MG SUPP PR NR (15:00)
[2018-11-19] MEDS: HYDROCODONE/ACETAMINOPHEN 5/325MG TABLET PO PRN (16:58)
[2018-11-19] MEDS: METOCLOPRAMIDE HCL 10MG/2ML VIAL IV SCH ×2 (17:00→23:36)
[2018-11-19] MEDS: ENOXAPARIN 40MG/0.4ML SYR SUBCUT SCH (21:36)
[2018-11-20] VITALS (39 sets, daily range): BP systolic 91–146; BP diastolic 42–74
[2018-11-20] MEDS: ACETYLCYSTEINE 100MG/ML 10% VIAL 4ML INH SCH ×2 (00:17→08:16)
[2018-11-20] MEDS: IPRATROPIUM/ALBUTEROL 0.5-3(2.5)MG/3ML NEB HHN SCH ×6 (00:17→21:03)
[2018-11-20] MEDS: VANCOMYCIN 1 G PREMIX 200 ML IV SCH ×2 (00:39→17:59)
[2018-11-20] MEDS: INSULIN LISPRO 100 UNITS/ML SUBCUT SCH ×4 (00:55→17:59)
[2018-11-20] MEDS: HYDROCODONE/ACETAMINOPHEN 5/325MG TABLET PO PRN (02:36)
[2018-11-20 05:51] LABS: BASOPHILS % 1.1 % (0.0-2.0); EOSINOPHILS % 3.1 % (0.0-5.0); HEMATOCRIT. 25.5 % (42.0-52.0); HEMOGLOBIN. 8.6 g/dL (14.0-18.0); LYMPHOCYTES % 14.9 % (20.0-50.0); MEAN CORPUSCULAR HEMOGLOBIN 30.2 pg (28.0-32.0); MEAN CORPUSCULAR VOLUME 89.8 fL (80.0-94.0); MEAN PLATELET VOLUME 8.8 fl (7.4-10.4); MONOCYTES % 8.4 % (2.0-8.0); NEUTROPHILS % 72.5 % (40.0-76.0); PLATELET 242 x1000/uL (130-400); RED BLOOD CELL COUNT 2.84 mill/uL (4.7-6.1); RED CELL DISTRIBUTION WIDTH 13.1 % (11.6-14.6)
[2018-11-20 05:59] LABS: CHLORIDE 105 mEq/L (98-107)
[2018-11-20 06:10] LABS: PHOSPHORUS 3.1 mg/dL (2.5-4.9)
[2018-11-20] MEDS: METOCLOPRAMIDE HCL 10MG/2ML VIAL IV SCH ×4 (06:13→23:31)
[2018-11-20] MEDS: HYDRALAZINE HCL 25MG TABLET NG SCH ×3 (06:14→21:32)
[2018-11-20] MEDS: PIPERACILLIN/TAZ 3.375G PREMIX 50 ML IV SCH ×2 (06:15→11:19)
[2018-11-20] MEDS: BLOOD SUGAR DIAGNOSTIC STRIP TEST SCH ×5 (06:47→23:37)
[2018-11-20] MEDS: LOSARTAN POTASSIUM 50 MG TABLET NG SCH (08:41)
[2018-11-20] MEDS: LEVOTHYROXINE SODIUM 50MCG TABLET PO SCH (08:45)
[2018-11-20] MEDS: RISPERIDONE 0.5MG TABLET PO SCH (08:45)
[2018-11-20 09:13] LABS: BG BASE EXCESS 1.2 mmol/L (-2.0-2.0); BG CARBOXYHEMOGLOBIN 0.3 % (0.5-1.5); BG DEOXYHEMOGLOBIN 1.4 % (0.0-5.0); BG FRACTION INSPIRED OXYGEN 40; BG HCO3 ACT 25.6 mmol/L (22.0-26.0); BG METHEMOGLOBIN 0.3 % (0.0-1.5); BG OXYGEN SATURATION 98.6 % (92.0-98.5); BG PCO2 39.4 mmHg (35.0-45.0); BG SAMPLE SITE RIGHT BRACHIAL; BG TOTAL HEMOGLOBIN 8.1 g/dL (12.0-18.0); BG VENT MODE MASK - AEROSOL
[2018-11-20] MEDS: RISPERIDONE 0.25MG TABLET PO SCH (18:16)
[2018-11-20] MEDS: ENOXAPARIN 40MG/0.4ML SYR SUBCUT SCH (21:31)
[2018-11-21] VITALS (54 sets, daily range): BP systolic 95–171; BP diastolic 41–102
[2018-11-21] MEDS: INSULIN LISPRO 100 UNITS/ML SUBCUT SCH ×4 (00:25→17:55)
[2018-11-21] MEDS: ACETYLCYSTEINE 100MG/ML 10% VIAL 4ML INH SCH ×2 (00:47→07:46)
[2018-11-21] MEDS: IPRATROPIUM/ALBUTEROL 0.5-3(2.5)MG/3ML NEB HHN SCH ×6 (00:47→20:26)
[2018-11-21] MEDS: HYDRALAZINE HCL 25MG TABLET NG SCH ×3 (05:12→21:47)
[2018-11-21] MEDS: BLOOD SUGAR DIAGNOSTIC STRIP TEST SCH ×3 (05:33→18:27)
[2018-11-21] MEDS: METOCLOPRAMIDE HCL 10MG/2ML VIAL IV SCH ×3 (05:35→17:05)
[2018-11-21 06:57] LABS: BASOPHILS % 1.3 % (0.0-2.0); EOSINOPHILS % 5.1 % (0.0-5.0); MEAN CORPUSCULAR HEMOGLOBIN 30.1 pg (28.0-32.0); MEAN CORPUSCULAR VOLUME 90.5 fL (80.0-94.0); MONOCYTES % 7.1 % (2.0-8.0); NEUTROPHILS % 70.5 % (40.0-76.0); PLATELET 245 x1000/uL (130-400); RED BLOOD CELL COUNT 2.65 mill/uL (4.7-6.1); RED CELL DISTRIBUTION WIDTH 13.4 % (11.6-14.6)
[2018-11-21] MEDS: LEVOTHYROXINE SODIUM 50MCG TABLET PO SCH (07:48)
[2018-11-21] MEDS: LOSARTAN POTASSIUM 50 MG TABLET NG SCH (09:02)
[2018-11-21] MEDS: RISPERIDONE 0.25MG TABLET PO SCH ×2 (09:02→17:05)
[2018-11-21 09:18] LABS: CHLORIDE 106 mEq/L (98-107)
[2018-11-21] MEDS: ENOXAPARIN 40MG/0.4ML SYR SUBCUT SCH (21:47)
[2018-11-22] VITALS (16 sets, daily range): BP systolic 3–176; BP diastolic 50–95
[2018-11-22] MEDS: ACETYLCYSTEINE 100MG/ML 10% VIAL 4ML INH SCH
[2018-11-22] MEDS: METOCLOPRAMIDE HCL 10MG/2ML VIAL IV SCH ×5 (00:01→23:39)
[2018-11-22] MEDS: BLOOD SUGAR DIAGNOSTIC STRIP TEST SCH ×5 (00:01→23:39)
[2018-11-22] MEDS: IPRATROPIUM/ALBUTEROL 0.5-3(2.5)MG/3ML NEB HHN SCH ×6 (00:15→21:03)
[2018-11-22] MEDS: ACETAMINOPHEN 650MG/20.3ML UDC PO PRN (01:47)
[2018-11-22 05:32] LABS: BASOPHILS % 1.1 % (0.0-2.0); HEMATOCRIT. 25.6 % (42.0-52.0); HEMOGLOBIN. 8.4 g/dL (14.0-18.0); MONOCYTES % 5.3 % (2.0-8.0); NEUTROPHILS % 75.6 % (40.0-76.0); PLATELET 288 x1000/uL (130-400); RED BLOOD CELL COUNT 2.81 mill/uL (4.7-6.1); RED CELL DISTRIBUTION WIDTH 13.6 % (11.6-14.6)
[2018-11-22 05:47] LABS: CHLORIDE 105 mEq/L (98-107)
[2018-11-22 05:58] LABS: PHOSPHORUS 2.7 mg/dL (2.5-4.9)
[2018-11-22] MEDS: INSULIN LISPRO 100 UNITS/ML SUBCUT SCH ×5 (06:00→23:39)
[2018-11-22] MEDS: HYDRALAZINE HCL 25MG TABLET NG SCH ×3 (06:56→21:11)
[2018-11-22] MEDS: LEVOTHYROXINE SODIUM 50MCG TABLET PO SCH (08:29)
[2018-11-22] MEDS: LOSARTAN POTASSIUM 50 MG TABLET NG SCH (08:29)
[2018-11-22] MEDS: RISPERIDONE 0.25MG TABLET PO SCH (08:32)
[2018-11-22 16:06] LABS: BG BASE EXCESS 6.3 mmol/L (-2.0-2.0); BG CARBOXYHEMOGLOBIN 0.3 % (0.5-1.5); BG DEOXYHEMOGLOBIN 2.2 % (0.0-5.0); BG HCO3 ACT 31.5 mmol/L (22.0-26.0); BG METHEMOGLOBIN 0.3 % (0.0-1.5); BG OXYGEN SATURATION 97.8 % (92.0-98.5); BG OXYHEMOGLOBIN 97.2 % (94.0-97.0); BG PCO2 48.8 mmHg (35.0-45.0); BG PH 7.428 (7.350-7.450); BG PO2 108.3 mmHg (75.0-100.0); BG SAMPLE SITE RIGHT BRACHIAL; BG TOTAL HEMOGLOBIN 9.6 g/dL (12.0-18.0); BG VENT MODE NASAL CANNULA
[2018-11-22] MEDS: RISPERIDONE 0.5MG TABLET PO SCH (17:14)
[2018-11-22] MEDS: ENOXAPARIN 40MG/0.4ML SYR SUBCUT SCH (21:11)
[2018-11-23] VITALS (12 sets, daily range): BP systolic 125–172; BP diastolic 62–89
[2018-11-23] MEDS: IPRATROPIUM/ALBUTEROL 0.5-3(2.5)MG/3ML NEB HHN SCH ×6 (04:00→20:44)
[2018-11-23] MEDS: BLOOD SUGAR DIAGNOSTIC STRIP TEST SCH ×3 (05:56→17:48)
[2018-11-23] MEDS: INSULIN LISPRO 100 UNITS/ML SUBCUT SCH ×3 (05:56→18:05)
[2018-11-23] MEDS: METOCLOPRAMIDE HCL 10MG/2ML VIAL IV SCH ×3 (05:57→17:34)
[2018-11-23] MEDS: HYDRALAZINE HCL 25MG TABLET NG SCH ×3 (05:57→21:04)
[2018-11-23] MEDS: LEVOTHYROXINE SODIUM 50MCG TABLET PO SCH (09:34)
[2018-11-23] MEDS: RISPERIDONE 0.5MG TABLET PO SCH ×2 (09:35→17:34)
[2018-11-23] MEDS: LOSARTAN POTASSIUM 50 MG TABLET NG SCH (09:35)
[2018-11-23] MEDS: ACETAMINOPHEN 650MG/20.3ML UDC PO PRN (15:30)
[2018-11-23] MEDS: ENOXAPARIN 40MG/0.4ML SYR SUBCUT SCH (21:04)
[2018-11-24] VITALS: BP 139/69
[2018-11-24] MEDS: BLOOD SUGAR DIAGNOSTIC STRIP TEST SCH ×4 (00:17→17:19)
[2018-11-24] MEDS: METOCLOPRAMIDE HCL 10MG/2ML VIAL IV SCH ×4 (00:17→17:19)
[2018-11-24] MEDS: INSULIN LISPRO 100 UNITS/ML SUBCUT SCH ×4 (00:23→17:20)
[2018-11-24] MEDS: IPRATROPIUM/ALBUTEROL 0.5-3(2.5)MG/3ML NEB HHN SCH ×6 (00:54→20:00)
[2018-11-24 02:00] VITALS: BP 122/59
[2018-11-24 04:00] VITALS: BP 136/78
[2018-11-24] MEDS: HYDRALAZINE HCL 25MG TABLET NG SCH ×3 (05:26→21:21)
[2018-11-24 06:00] VITALS: BP 118/52
[2018-11-24 07:02] LABS: BASOPHILS % 0.5 % (0.0-2.0); EOSINOPHILS % 0.3 % (0.0-5.0); HEMATOCRIT. 25.2 % (42.0-52.0); HEMOGLOBIN. 8.2 g/dL (14.0-18.0); LYMPHOCYTES % 12.4 % (20.0-50.0); MEAN CORPUSCULAR HEMOGLOBIN 29.4 pg (28.0-32.0); MEAN CORPUSCULAR VOLUME 90.5 fL (80.0-94.0); MONOCYTES % 3.7 % (2.0-8.0); NEUTROPHILS % 83.1 % (40.0-76.0); PLATELET 383 x1000/uL (130-400); RED BLOOD CELL COUNT 2.79 mill/uL (4.7-6.1); RED CELL DISTRIBUTION WIDTH 13.6 % (11.6-14.6)
[2018-11-24 07:03] LABS: CHLORIDE 108 mEq/L (98-107)
[2018-11-24] MEDS ORDERED: VANCOMYCIN 1 G PREMIX 200 ML IV ONE (07:45)
[2018-11-24] MEDS ORDERED: POTASSIUM CHLORIDE 20MEQ/PACKET PO NR (09:00)
[2018-11-24] MEDS: LEVOTHYROXINE SODIUM 50MCG TABLET PO SCH (09:03)
[2018-11-24] MEDS: RISPERIDONE 0.5MG TABLET PO SCH ×2 (09:03→17:31)
[2018-11-24] MEDS: LOSARTAN POTASSIUM 50 MG TABLET NG SCH (09:04)
[2018-11-24 09:53] LABS: CLARITY URINE CLEAR (CLEAR); COLOR URINE DARK YELLOW (YELLOW); KETONES URINE 1+ (NEGATIVE); LEUKOCYTE ESTERASE URINE TRACE (NEGATIVE); NITRITE URINE NEGATIVE (NEGATIVE); OCCULT BLOOD URINE NEGATIVE (NEGATIVE); PROTEIN URINE 3+ (NEGATIVE); SPECIFIC GRAVITY URINE 1.021 (1.005-1.030)
[2018-11-24] MEDS: PIPERACILLIN/TAZ 3.375G PREMIX 50 ML IV SCH ×2 (11:44→17:19)
[2018-11-24] MEDS: VANCOMYCIN 1 G PREMIX 200 ML IV SCH (12:33)
[2018-11-24 20:00] VITALS: BP 147/90
[2018-11-24] MEDS: ENOXAPARIN 40MG/0.4ML SYR SUBCUT SCH (21:20)
[2018-11-24 22:00] VITALS: BP 127/64
[2018-11-25] VITALS (12 sets, daily range): BP systolic 123–158; BP diastolic 59–94
[2018-11-25] MEDS: METOCLOPRAMIDE HCL 10MG/2ML VIAL IV SCH ×3 (00:02→11:53)
[2018-11-25] MEDS: INSULIN LISPRO 100 UNITS/ML SUBCUT SCH ×4 (00:03→18:08)
[2018-11-25] MEDS: BLOOD SUGAR DIAGNOSTIC STRIP TEST SCH ×5 (00:04→23:53)
[2018-11-25] MEDS: IPRATROPIUM/ALBUTEROL 0.5-3(2.5)MG/3ML NEB HHN SCH ×5 (00:17→21:07)
[2018-11-25] MEDS: PIPERACILLIN/TAZ 3.375G PREMIX 50 ML IV SCH ×3 (01:42→17:00)
[2018-11-25] MEDS: VANCOMYCIN 1 G PREMIX 200 ML IV SCH ×2 (03:47→21:12)
[2018-11-25] MEDS: HYDRALAZINE HCL 25MG TABLET NG SCH ×3 (05:30→21:12)
[2018-11-25 07:31] LABS: BASOPHILS % 0.2 % (0.0-2.0); EOSINOPHILS % 1.9 % (0.0-5.0); HEMATOCRIT. 27.5 % (42.0-52.0); LYMPHOCYTES % 13.1 % (20.0-50.0); MEAN CORPUSCULAR HEMOGLOBIN 29.6 pg (28.0-32.0); MEAN CORPUSCULAR VOLUME 90.5 fL (80.0-94.0); MEAN PLATELET VOLUME 9.6 fl (7.4-10.4); MONOCYTES % 3.6 % (2.0-8.0); NEUTROPHILS % 81.2 % (40.0-76.0); PLATELET 406 x1000/uL (130-400); RED BLOOD CELL COUNT 3.04 mill/uL (4.7-6.1); RED CELL DISTRIBUTION WIDTH 13.6 % (11.6-14.6)
[2018-11-25 07:35] LABS: CHLORIDE 109 mEq/L (98-107)
[2018-11-25 07:40] LABS: PHOSPHORUS 2.5 mg/dL (2.5-4.9)
[2018-11-25] MEDS: LEVOTHYROXINE SODIUM 50MCG TABLET PO SCH (08:16)
[2018-11-25] MEDS: LOSARTAN POTASSIUM 50 MG TABLET NG SCH (08:17)
[2018-11-25] MEDS: RISPERIDONE 0.5MG TABLET PO SCH ×2 (08:17→17:00)
[2018-11-25] MEDS: ENOXAPARIN 40MG/0.4ML SYR SUBCUT SCH (21:12)
[2018-11-26] VITALS (11 sets, daily range): BP systolic 121–154; BP diastolic 55–93
[2018-11-26] MEDS: INSULIN LISPRO 100 UNITS/ML SUBCUT SCH ×4 (00:01→17:32)
[2018-11-26] MEDS: IPRATROPIUM/ALBUTEROL 0.5-3(2.5)MG/3ML NEB HHN SCH ×6 (00:59→21:00)
[2018-11-26] MEDS: PIPERACILLIN/TAZ 3.375G PREMIX 50 ML IV SCH ×3 (02:28→17:32)
[2018-11-26] MEDS: HYDRALAZINE HCL 25MG TABLET NG SCH ×3 (05:53→22:47)
[2018-11-26] MEDS: BLOOD SUGAR DIAGNOSTIC STRIP TEST SCH ×3 (05:58→17:31)
[2018-11-26 06:05] LABS: BASOPHILS % 1.4 % (0.0-2.0); HEMOGLOBIN. 7.9 g/dL (14.0-18.0); LYMPHOCYTES % 16.7 % (20.0-50.0); MEAN CORPUSCULAR HEMOGLOBIN 30.1 pg (28.0-32.0); MEAN CORPUSCULAR VOLUME 91.7 fL (80.0-94.0); MEAN PLATELET VOLUME 8.8 fl (7.4-10.4); MONOCYTES % 6.3 % (2.0-8.0); NEUTROPHILS % 72.6 % (40.0-76.0); PLATELET 379 x1000/uL (130-400); RED BLOOD CELL COUNT 2.61 mill/uL (4.7-6.1); RED CELL DISTRIBUTION WIDTH 13.8 % (11.6-14.6)
[2018-11-26 06:20] LABS: CHLORIDE 112 mEq/L (98-107)
[2018-11-26] MEDS ORDERED: POTASSIUM CHLORIDE 20MEQ TABLET SR PO SCH (08:00)
[2018-11-26] MEDS: LEVOTHYROXINE SODIUM 50MCG TABLET PO SCH (08:30)
[2018-11-26] MEDS: LOSARTAN POTASSIUM 50 MG TABLET NG SCH (08:30)
[2018-11-26] MEDS: RISPERIDONE 0.5MG TABLET PO SCH ×2 (08:30→16:18)
[2018-11-26] MEDS: DEXTROSE 5% WATER 1,000 ML IV SCH (08:38)
[2018-11-26] MEDS ORDERED: LEVOFLOXACIN 500MG PREMIX 100 ML IV SCH (09:00)
[2018-11-26] MEDS ORDERED: DEXTROSE 5% WATER 1,000 ML IV SCH (09:30)
[2018-11-26] MEDS ORDERED: POTASSIUM CHLORIDE INJ 40 MEQ in DEXT 5% WATER 250 ML IV NR (10:30)
[2018-11-26] MEDS: LEVOFLOXACIN 500MG PREMIX 100 ML IV SCH (16:18)
[2018-11-26] MEDS: ENOXAPARIN 40MG/0.4ML SYR SUBCUT SCH (21:57)
[2018-11-27] VITALS (12 sets, daily range): BP systolic 112–153; BP diastolic 56–89
[2018-11-27] MEDS: IPRATROPIUM/ALBUTEROL 0.5-3(2.5)MG/3ML NEB HHN SCH ×5 (00:28→15:30)
[2018-11-27] MEDS: INSULIN LISPRO 100 UNITS/ML SUBCUT SCH ×3 (00:53→12:59)
[2018-11-27] MEDS: DEXTROSE 5% WATER 1,000 ML IV SCH (00:55)
[2018-11-27] MEDS: BLOOD SUGAR DIAGNOSTIC STRIP TEST SCH ×4 (00:55→17:19)
[2018-11-27] MEDS: PIPERACILLIN/TAZ 3.375G PREMIX 50 ML IV SCH ×2 (01:34→10:32)
[2018-11-27] MEDS ORDERED: VANCOMYCIN 1 G PREMIX 200 ML IV SCH (02:00)
[2018-11-27] MEDS: HYDRALAZINE HCL 25MG TABLET NG SCH ×2 (05:36→12:58)
[2018-11-27 06:47] LABS: EOSINOPHILS % 3.3 % (0.0-5.0); HEMATOCRIT. 24.7 % (42.0-52.0); HEMOGLOBIN. 8.4 g/dL (14.0-18.0); LYMPHOCYTES % 22.2 % (20.0-50.0); MEAN CORPUSCULAR HEMOGLOBIN 30.5 pg (28.0-32.0); MEAN CORPUSCULAR VOLUME 89.8 fL (80.0-94.0); MEAN PLATELET VOLUME 8.9 fl (7.4-10.4); MONOCYTES % 5.7 % (2.0-8.0); NEUTROPHILS % 67.8 % (40.0-76.0); PLATELET 358 x1000/uL (130-400); RED BLOOD CELL COUNT 2.75 mill/uL (4.7-6.1); RED CELL DISTRIBUTION WIDTH 13.3 % (11.6-14.6)
[2018-11-27 07:57] LABS: CHLORIDE 106 mEq/L (98-107)
[2018-11-27] MEDS: RISPERIDONE 0.25MG TABLET PO SCH ×2 (08:17→17:19)
[2018-11-27] MEDS: LOSARTAN POTASSIUM 50 MG TABLET NG SCH (08:17)
[2018-11-27] MEDS: LEVOTHYROXINE SODIUM 50MCG TABLET PO SCH (08:17)
[2018-11-27] MEDS: ACETAMINOPHEN 650MG/20.3ML UDC PO PRN (08:18)
[2018-11-27 08:26] LABS: PHOSPHORUS 2.4 mg/dL (2.5-4.9)
[2018-11-27] MEDS ORDERED: POTASSIUM CHLORIDE 20MEQ TABLET SR PO SCH (09:15)
[2018-11-27] MEDS ORDERED: POTASSIUM PHOS,M-BASIC-D-BASIC 20 MMOL in DEXT 5% WATER 243.3333 ML IV SCH (11:00)
[2018-11-27] MEDS: LEVOFLOXACIN 500MG PREMIX 100 ML IV SCH (11:51)
[2018-11-28] MEDS ORDERED: LEVOFLOXACIN 500MG TABLET PO SCH (11:00)
== END 2018-11-27 18:05 | DRG 870 ==
LOC: ER 14:08 → EDBEDREQ 14:18 → EDBEDREQSVC 15:27 → CVICU 16:02 → EDBEDREQ 16:17 → ENRESERV 16:48 → 5EST 11-22 05:33
PROVIDERS: ADMIT Internal Medicine; ATTEND Internal Medicine
PROC: 0BH17EZ Insertion of Endotracheal Airway into Trachea, Via Natural or Artificial Opening (ICD-10-PCS; principal; 2018-11-11)
PROC: 5A1955Z Respiratory Ventilation, Greater than 96 Consecutive Hours (ICD-10-PCS; 2018-11-11)
PROC: 02HV33Z Insertion of Infusion Device into Superior Vena Cava, Percutaneous Approach (ICD-10-PCS; 2018-11-22)
PROC: B548ZZA Ultrasonography of Superior Vena Cava, Guidance (ICD-10-PCS; 2018-11-22)
DX: A41.9 Sepsis, unspecified organism (principal); J96.00 Acute respiratory failure, unspecified whether with hypoxia or hypercapnia; J69.0 Pneumonitis due to inhalation of food and vomit; N17.0 Acute kidney failure with tubular necrosis; G93.41 Metabolic encephalopathy; N39.0 Urinary tract infection, site not specified; I13.0 Hypertensive heart and chronic kidney disease with heart failure and stage 1 through stage 4 chronic kidney disease, or unspecified chronic kidney disease; E87.1 Hypo-osmolality and hyponatremia; E87.4 Mixed disorder of acid-base balance; E44.0 Moderate protein-calorie malnutrition; E87.0 Hyperosmolality and hypernatremia; E87.2 Acidosis; N18.9 Chronic kidney disease, unspecified; E11.22 Type 2 diabetes mellitus with diabetic chronic kidney disease; J44.9 Chronic obstructive pulmonary disease, unspecified; D64.9 Anemia, unspecified; E78.5 Hyperlipidemia, unspecified; E03.9 Hypothyroidism, unspecified; E87.6 Hypokalemia; R65.20 Severe sepsis without septic shock; F20.9 Schizophrenia, unspecified; I25.10 Atherosclerotic heart disease of native coronary artery without angina pectoris; R76.8 Other specified abnormal immunological findings in serum; I50.9 Heart failure, unspecified; Z78.1 Physical restraint status; Z87.01 Personal history of pneumonia (recurrent); Z79.82 Long term (current) use of aspirin; Z79.899 Other long term (current) drug therapy; Z79.4 Long term (current) use of insulin; Z87.440 Personal history of urinary (tract) infections; Z68.22 Body mass index [BMI] 22.0-22.9, adult
CPT/HCPCS: 31500; 36415; 36600; 71045; 74018; 76937; 80048; 80061; 80202; 82375; 82550; 82553; 82805; 82962; 83036; 83605; 83735; 83880; 84100; 84145; 84439; 84443; 84478; 84484; 85379; 87070; 92610; 93005; 93306; 93970; 94002; 94003; 94640; 96361; 96365; 96368; 96375; 99291; A6261; C1725; C9113; J1170; J1650; J1815; J1956; J2405; J2543; J2704; J2765; J3370; J3475; J3480; J3490; J7030; J7042; J7050; J7060; J7070; J7608; J7620; A4315

== ENCOUNTER 2019-01-22 21:50 | Inpatient (IN) | payer MEDICARE, MEDICAID ==
[~2019-01-22] VITALS: Ht 172.7 cm; Wt 54.4 kg
[~2019-01-22 21:50] MED LIST changes: +ARGI1POW17 PO; -ASA5EC PO; +ASCO500C15 PO; +ASPI-1393 PO; +ASPI325T85 PO; +BISA10SU8 PO; +GABA-533 PO; +GLIP5TAB12 PO; +LACT1CAP68 PO; +LEVVL SQ; +LISI-186 PO; +MULT-1146 PO; +RISP0.5T19 PO; +ZINC220T4 PO
[2019-01-22] MEDS ORDERED: ONDANSETRON HCL 4MG/2ML INJ IV STA (23:17)
[2019-01-22] MEDS ORDERED: PIPERACILLIN/TAZ 3.375G PREMIX 50 ML IV ONE (23:30)
[2019-01-22] MEDS ORDERED: VANCOMYCIN 1 G PREMIX 200 ML IV ONE (23:30)
[2019-01-22] MEDS ORDERED: SODIUM CHLORIDE 0.9% 1000ML BAG (SEPSIS BOLUS) IV ONE (23:30)
[2019-01-23] VITALS (8 sets, daily range): BP systolic 98–143; BP diastolic 51–81
[2019-01-23 00:27] LABS: BASOPHILS % 0.9 % (0.0-2.0); EOSINOPHILS % 0.6 % (0.0-5.0); HEMATOCRIT. 29.6 % (42.0-52.0); HEMOGLOBIN. 9.5 g/dL (14.0-18.0); LYMPHOCYTES % 17.2 % (20.0-50.0); MEAN CORPUSCULAR HEMOGLOBIN 28.5 pg (28.0-32.0); MEAN CORPUSCULAR VOLUME 88.7 fL (80.0-94.0); MEAN PLATELET VOLUME 9.7 fl (7.4-10.4); NEUTROPHILS % 76.3 % (40.0-76.0); PLATELET 289 x1000/uL (130-400); RED BLOOD CELL COUNT 3.34 mill/uL (4.7-6.1); RED CELL DISTRIBUTION WIDTH 15.4 % (11.6-14.6)
[2019-01-23 00:33] LABS: CHLORIDE 107 mEq/L (98-107)
[2019-01-23 00:38] LABS: BG BASE EXCESS 11.4 mmol/L (-2.0-2.0); BG CARBOXYHEMOGLOBIN 0.3 % (0.5-1.5); BG DEOXYHEMOGLOBIN 1.3 % (0.0-5.0); BG FRACTION INSPIRED OXYGEN 28; BG HCO3 ACT 36.1 mmol/L (22.0-26.0); BG OXYGEN SATURATION 98.7 % (92.0-98.5); BG OXYHEMOGLOBIN 98.4 % (94.0-97.0); BG PCO2 49.1 mmHg (35.0-45.0); BG PH 7.484 (7.350-7.450); BG PO2 137.5 mmHg (75.0-100.0); BG SAMPLE SITE LEFT RADIAL; BG TOTAL HEMOGLOBIN 8.8 g/dL (12.0-18.0); BG VENT MODE NASAL CANNULA
[2019-01-23 00:53] LABS: CLARITY URINE CLOUDY (CLEAR); COLOR URINE YELLOW (YELLOW); KETONES URINE NEGATIVE (NEGATIVE); LEUKOCYTE ESTERASE URINE 3+ (NEGATIVE); NITRITE URINE NEGATIVE (NEGATIVE); OCCULT BLOOD URINE NEGATIVE (NEGATIVE); PH URINE 7.5 (4.5-8.0); PROTEIN URINE 2+ (NEGATIVE); SPECIFIC GRAVITY URINE 1.016 (1.005-1.030); UROBILINOGEN URINE 0.2 E.U./dL (0.2-1.0)
[2019-01-23] MEDS ORDERED: NA PHOS,M-B/NA PHOS,DI-BA ENEMA 118ML PR PRN (06:00)
[2019-01-23] MEDS ORDERED: ENOXAPARIN 40MG/0.4ML SYR SUBCUT SCH (06:00)
[2019-01-23] MEDS ORDERED: CLONIDINE 0.1MG TABLET PO PRN (06:00)
[2019-01-23] MEDS ORDERED: IPRATROPIUM/ALBUTEROL 0.5-3(2.5)MG/3ML NEB NEB PRN (06:00)
[2019-01-23] MEDS ORDERED: ONDANSETRON HCL 4MG/2ML INJ IV PRN (06:00)
[2019-01-23] MEDS ORDERED: MAGNESIUM/ALUMINUM HYDROXIDE/SIMETHICONE 30ML UDC PO PRN (06:00)
[2019-01-23] MEDS ORDERED: DIPHENHYDRAMINE 50MG/ML VIAL IV PRN (06:00)
[2019-01-23] MEDS ORDERED: ACETAMINOPHEN 325MG TABLET PO PRN (06:00)
[2019-01-23] MEDS ORDERED: DOCUSATE SODIUM 100MG CAPSULE PO PRN (06:00)
[2019-01-23] MEDS ORDERED: GUAIFENESIN 200MG/10ML SUGAR FREE UDC PO PRN (06:00)
[2019-01-23 06:17] LABS: CHLORIDE 110 mEq/L (98-107)
[2019-01-23] MEDS: ENOXAPARIN 30MG/0.3ML SYR SUBCUT SCH (10:21)
[2019-01-23] MEDS: ASPIRIN 81MG EC TABLET PO SCH (10:21)
[2019-01-23] MEDS: HYDROMORPHONE HCL/PF 2MG/ML CPJ IV PRN (11:09)
[2019-01-23] MEDS: SODIUM CHLORIDE 0.45% 1,000 ML IV SCH (12:05)
[2019-01-23] MEDS ORDERED: PIPERACILLIN/TAZ 3.375G PREMIX 50 ML IV SCH (14:00)
[2019-01-23] MEDS: PIPERACILLIN/TAZOBACTAM 3.375 G in DEXT 5% WATER 100 ML IV SCH ×2 (14:13→21:41)
[2019-01-23] MEDS ORDERED: CLON1PAT12 TP (15:29)
[2019-01-23] MEDS ORDERED: CLON0.1T PO (15:29)
[2019-01-23] MEDS ORDERED: MIRT15TA6 MT (15:29)
[2019-01-23] MEDS ORDERED: POLY17PO28 PO (15:30)
[2019-01-23] MEDS ORDERED: ACET-2178 PO (15:30)
[2019-01-23] MEDS ORDERED: DAPT350V IV (15:30)
[2019-01-23] MEDS ORDERED: METO-293 MT (15:30)
[2019-01-23] MEDS ORDERED: MEMA5TAB15 MT (15:30)
[2019-01-23] MEDS ORDERED: NATE60TA MT (15:30)
[2019-01-23 15:56] LABS: CREATINE KINASE 16 IU/L (39-308)
[2019-01-23 15:57] LABS: CREATINE KINASE MB FRACTION 1.1 ng/mL (0.5-3.6)
[2019-01-23] MEDS ORDERED: DEXTROSE 50% WATER 50ML SYRINGE IV PRN (16:45)
[2019-01-23] MEDS: BLOOD SUGAR DIAGNOSTIC STRIP TEST SCH ×2 (17:28→21:07)
[2019-01-23] MEDS: INSULIN LISPRO 100 UNITS/ML SUBCUT SCH ×2 (17:33→21:24)
[2019-01-23] MEDS: LORAZEPAM 2MG/ML CPJ IV PRN ×2 (21:40→22:39)
[2019-01-24] VITALS (11 sets, daily range): BP systolic 93–162; BP diastolic 43–81
[2019-01-24 00:22] LABS: CREATINE KINASE MB FRACTION 1.1 ng/mL (0.5-3.6)
[2019-01-24] MEDS: SODIUM CHLORIDE 0.45% 1,000 ML IV SCH (03:58)
[2019-01-24] MEDS: PIPERACILLIN/TAZOBACTAM 3.375 G in DEXT 5% WATER 100 ML IV SCH ×3 (05:49→20:50)
[2019-01-24 06:27] LABS: CHLORIDE 111 mEq/L (98-107)
[2019-01-24 06:36] LABS: CREATINE KINASE 18 IU/L (39-308); LDL CHOLESTEROL 95 mg/dL (5-100)
[2019-01-24 06:37] LABS: CREATINE KINASE MB FRACTION < 1.0 ng/mL (0.5-3.6); HDL CHOLESTEROL 30 mg/dL (40-59); T4 FREE 0.94 ng/dL (0.76-1.46)
[2019-01-24 06:48] LABS: BASOPHILS % 1.1 % (0.0-2.0); EOSINOPHILS % 1.8 % (0.0-5.0); HEMATOCRIT. 27.3 % (42.0-52.0); HEMOGLOBIN. 8.7 g/dL (14.0-18.0); LYMPHOCYTES % 17.1 % (20.0-50.0); MEAN CORPUSCULAR HEMOGLOBIN 28.6 pg (28.0-32.0); MEAN CORPUSCULAR VOLUME 89.2 fL (80.0-94.0); MEAN PLATELET VOLUME 9.9 fl (7.4-10.4); MONOCYTES % 4.1 % (2.0-8.0); NEUTROPHILS % 75.9 % (40.0-76.0); PLATELET 237 x1000/uL (130-400); RED BLOOD CELL COUNT 3.05 mill/uL (4.7-6.1); RED CELL DISTRIBUTION WIDTH 14.7 % (11.6-14.6)
[2019-01-24] MEDS: BLOOD SUGAR DIAGNOSTIC STRIP TEST SCH ×4 (06:50→20:50)
[2019-01-24] MEDS: ASPIRIN 81MG EC TABLET PO SCH (09:02)
[2019-01-24] MEDS: INSULIN LISPRO 100 UNITS/ML SUBCUT SCH ×4 (09:02→21:07)
[2019-01-24] MEDS: ENOXAPARIN 30MG/0.3ML SYR SUBCUT SCH (09:03)
[2019-01-24] MEDS: HYDROCODONE/ACETAMINOPHEN 5/325MG TABLET PO PRN (21:14)
[2019-01-24] MEDS: HYDROMORPHONE HCL/PF 2MG/ML CPJ IV PRN (23:22)
[2019-01-25] VITALS (12 sets, daily range): BP systolic 93–152; BP diastolic 45–84
[2019-01-25] MEDS: PIPERACILLIN/TAZOBACTAM 3.375 G in DEXT 5% WATER 100 ML IV SCH ×3 (05:53→21:09)
[2019-01-25] MEDS: BLOOD SUGAR DIAGNOSTIC STRIP TEST SCH ×4 (05:54→21:18)
[2019-01-25 06:58] LABS: BASOPHILS % 1.1 % (0.0-2.0); EOSINOPHILS % 4.3 % (0.0-5.0); HEMATOCRIT. 29.3 % (42.0-52.0); HEMOGLOBIN. 9.5 g/dL (14.0-18.0); LYMPHOCYTES % 28.1 % (20.0-50.0); MEAN CORPUSCULAR HEMOGLOBIN 28.7 pg (28.0-32.0); MEAN CORPUSCULAR VOLUME 88.8 fL (80.0-94.0); NEUTROPHILS % 62.5 % (40.0-76.0); PLATELET 237 x1000/uL (130-400); RED CELL DISTRIBUTION WIDTH 14.8 % (11.6-14.6)
[2019-01-25 07:10] LABS: CHLORIDE 109 mEq/L (98-107)
[2019-01-25] MEDS: INSULIN LISPRO 100 UNITS/ML SUBCUT SCH ×6 (07:20→21:23)
[2019-01-25 07:26] LABS: PHOSPHORUS 3.4 mg/dL (2.5-4.9)
[2019-01-25] MEDS: LORAZEPAM 2MG/ML CPJ IV PRN ×2 (08:00→23:59)
[2019-01-25] MEDS: ASPIRIN 81MG EC TABLET PO SCH (08:00)
[2019-01-25] MEDS: ENOXAPARIN 40MG/0.4ML SYR SUBCUT SCH (08:00)
[2019-01-25] MEDS: HYDROMORPHONE HCL/PF 2MG/ML CPJ IV PRN (12:35)
[2019-01-26] VITALS (9 sets, daily range): BP systolic 90–159; BP diastolic 45–75
[2019-01-26] MEDS: PIPERACILLIN/TAZOBACTAM 3.375 G in DEXT 5% WATER 100 ML IV SCH ×2 (06:05→14:01)
[2019-01-26] MEDS: BLOOD SUGAR DIAGNOSTIC STRIP TEST SCH ×4 (06:46→21:07)
[2019-01-26 06:51] LABS: BASOPHILS % 1.1 % (0.0-2.0); HEMATOCRIT. 29.1 % (42.0-52.0); HEMOGLOBIN. 9.5 g/dL (14.0-18.0); LYMPHOCYTES % 22.9 % (20.0-50.0); MEAN CORPUSCULAR HEMOGLOBIN 28.6 pg (28.0-32.0); MEAN CORPUSCULAR VOLUME 87.6 fL (80.0-94.0); MEAN PLATELET VOLUME 10.2 fl (7.4-10.4); MONOCYTES % 3.6 % (2.0-8.0); NEUTROPHILS % 69.4 % (40.0-76.0); PLATELET 241 x1000/uL (130-400); RED BLOOD CELL COUNT 3.32 mill/uL (4.7-6.1); RED CELL DISTRIBUTION WIDTH 14.4 % (11.6-14.6)
[2019-01-26 07:13] LABS: CHLORIDE 108 mEq/L (98-107)
[2019-01-26] MEDS: INSULIN LISPRO 100 UNITS/ML SUBCUT SCH ×4 (08:10→21:11)
[2019-01-26] MEDS: ENOXAPARIN 40MG/0.4ML SYR SUBCUT SCH (10:09)
[2019-01-26] MEDS: ASPIRIN 81MG EC TABLET PO SCH (10:09)
[2019-01-26] MEDS: HYDROCODONE/ACETAMINOPHEN 5/325MG TABLET PO PRN (10:21)
== END 2019-01-26 21:38 | DRG 871 ==
LOC: ER 21:50 → 3WST 01-23 04:33 → EDBEDREQTM 01-23 04:35 → EDBEDREQ 01-23 04:35 → ENRESERV 01-23 07:21 → 7WST 01-25 23:37
PROVIDERS: ADMIT Internal Medicine; ATTEND Internal Medicine
DX: A41.9 Sepsis, unspecified organism (principal); G93.41 Metabolic encephalopathy; N17.0 Acute kidney failure with tubular necrosis; J96.00 Acute respiratory failure, unspecified whether with hypoxia or hypercapnia; E87.2 Acidosis; I13.0 Hypertensive heart and chronic kidney disease with heart failure and stage 1 through stage 4 chronic kidney disease, or unspecified chronic kidney disease; E87.0 Hyperosmolality and hypernatremia; E87.1 Hypo-osmolality and hyponatremia; J44.1 Chronic obstructive pulmonary disease with (acute) exacerbation; N39.0 Urinary tract infection, site not specified; E87.4 Mixed disorder of acid-base balance; E46 Unspecified protein-calorie malnutrition; Z68.1 Body mass index [BMI] 19.9 or less, adult; D64.9 Anemia, unspecified; E11.22 Type 2 diabetes mellitus with diabetic chronic kidney disease; E11.649 Type 2 diabetes mellitus with hypoglycemia without coma; I25.10 Atherosclerotic heart disease of native coronary artery without angina pectoris; E03.9 Hypothyroidism, unspecified; L89.100 Pressure ulcer of unspecified part of back, unstageable; I95.9 Hypotension, unspecified; L89.029 Pressure ulcer of left elbow, unspecified stage; S90.822A Blister (nonthermal), left foot, initial encounter; X58.XXXA Exposure to other specified factors, initial encounter; E11.21 Type 2 diabetes mellitus with diabetic nephropathy; E11.65 Type 2 diabetes mellitus with hyperglycemia; E78.5 Hyperlipidemia, unspecified; E86.0 Dehydration; G40.909 Epilepsy, unspecified, not intractable, without status epilepticus; I50.9 Heart failure, unspecified; N18.1 Chronic kidney disease, stage 1; Z74.01 Bed confinement status; Z79.4 Long term (current) use of insulin; Z79.899 Other long term (current) drug therapy; Z79.1 Long term (current) use of non-steroidal anti-inflammatories (NSAID); Y93.89 Activity, other specified; Y92.89 Other specified places as the place of occurrence of the external cause; Y99.8 Other external cause status; Z87.01 Personal history of pneumonia (recurrent)
CPT/HCPCS: 36415; 36600; 71045; 74176; 80048; 80061; 81003; 82375; 82550; 82553; 82570; 82805; 82962; 83036; 83605; 83735; 83880; 84100; 84145; 84156; 84439; 84443; 84484; 85379; 86038; 87077; 87186; 93005; 93306; 96365; 99291; A6261; J1170; J1650; J1815; J2060; J2405; J2543; J3370; J7030; J7040; J7060

== ENCOUNTER 2019-02-10 00:06 | Inpatient (IN) | payer MEDICARE, MEDICAID ==
[~2019-02-10] VITALS: Ht 165.1 cm; Wt 57.2 kg
[~2019-02-10 00:06] MED LIST changes: -ARGI1POW17 PO; -ASCO500C15 PO; -ASPI-1393 PO; -ASPI325T85 PO; -ATOR40TA70 PO; -BENA20TA10 PO; -BISA10SU8 PO; +CLON0.1T PO; +CLON1PAT12 TP; -CYCL5TAB PO; +DAPT350V IV; -DIVA-73 PO; -DOCU-150 PO; -GABA-533 PO; -GABA800T97 PO; -HYDR-4001 PO; -HYDR-4005 PO; +MEMA5TAB15 MT; +METO-293 MT; +MIRT15TA6 MT; +NATE60TA MT; +POLY17PO28 PO; +TOPUD PO
[2019-02-10] MEDS ORDERED: ONDANSETRON HCL 4MG/2ML INJ IV STA (00:53)
[2019-02-10] MEDS ORDERED: MORPHINE SULFATE 4 MG/ML CPJ (NOT FOR IM USE) IV STA (00:53)
[2019-02-10] MEDS ORDERED: PIPERACILLIN/TAZ 3.375G PREMIX 50 ML IV ONE (01:00)
[2019-02-10] MEDS ORDERED: VANCOMYCIN 1 G PREMIX 200 ML IV ONE (01:00)
[2019-02-10] MEDS ORDERED: SODIUM CHLORIDE 0.9% 1000ML BAG (SEPSIS BOLUS) IV ONE (01:00)
[2019-02-10 01:31] LABS: HEMATOCRIT. 31.7 % (42.0-52.0); HEMOGLOBIN. 10.3 g/dL (14.0-18.0); MEAN CORPUSCULAR HEMOGLOBIN 28.6 pg (28.0-32.0); MEAN PLATELET VOLUME 9.3 fl (7.4-10.4); PLATELET 331 x1000/uL (130-400); RED BLOOD CELL COUNT 3.61 mill/uL (4.7-6.1); RED CELL DISTRIBUTION WIDTH 15.7 % (11.6-14.6)
[2019-02-10 01:38] LABS: INR 0.9; PROTHROMBIN TIME 9.5 sec (9.6-11.0)
[2019-02-10 01:41] LABS: CHLORIDE 98 mEq/L (98-107)
[2019-02-10 01:56] LABS: CLARITY URINE TURBID (CLEAR); COLOR URINE YELLOW (YELLOW); KETONES URINE NEGATIVE (NEGATIVE); LEUKOCYTE ESTERASE URINE 3+ (NEGATIVE); NITRITE URINE NEGATIVE (NEGATIVE); OCCULT BLOOD URINE 1+ (NEGATIVE); PROTEIN URINE TRACE (NEGATIVE); UROBILINOGEN URINE 0.2 E.U./dL (0.2-1.0)
[2019-02-10 02:05] LABS: PLATELET ESTIMATE NORMAL
[2019-02-10] MEDS ORDERED: MORPHINE SULFATE 2 MG/ML CPJ (NOT FOR IM USE) IV PRN (10:15)
[2019-02-10] MEDS ORDERED: CLONIDINE 0.1MG TABLET PO PRN (10:15)
[2019-02-10] MEDS ORDERED: ONDANSETRON HCL 4MG/2ML INJ IV PRN (10:15)
[2019-02-10] MEDS ORDERED: GUAIFENESIN 200MG/10ML SUGAR FREE UDC PO PRN (10:15)
[2019-02-10] MEDS ORDERED: DOCUSATE SODIUM 100MG CAPSULE PO PRN (10:15)
[2019-02-10] MEDS ORDERED: IPRATROPIUM/ALBUTEROL 0.5-3(2.5)MG/3ML NEB NEB PRN (10:15)
[2019-02-10] MEDS ORDERED: ACETAMINOPHEN 325MG TABLET PO PRN (10:15)
[2019-02-10] MEDS ORDERED: HYDROCODONE/ACETAMINOPHEN 5/325MG TABLET PO PRN (10:15)
[2019-02-10] MEDS ORDERED: MAGNESIUM/ALUMINUM HYDROXIDE/SIMETHICONE 30ML UDC PO PRN (10:15)
[2019-02-10] MEDS ORDERED: PIPERACILLIN/TAZ 3.375G PREMIX 50 ML IV SCH (10:15)
[2019-02-10] MEDS ORDERED: DIPHENHYDRAMINE 50MG/ML VIAL IV PRN (10:15)
[2019-02-10] MEDS ORDERED: NA PHOS,M-B/NA PHOS,DI-BA ENEMA 118ML PR PRN (10:15)
[2019-02-10] MEDS: DEXT 5%/0.45% NACL 1000ML 1,000 ML IV SCH (11:19)
[2019-02-10] MEDS ORDERED: IPRATROPIUM/ALBUTEROL 0.5-3(2.5)MG/3ML NEB HHN PRN (12:30)
[2019-02-10] MEDS ORDERED: NOREPINEPHRINE 8 MG in DEXT 5% WATER 242 ML IV PRN (12:30)
[2019-02-10 13:36] LABS: BG BASE EXCESS 2.5 mmol/L (-2.0-2.0); BG CARBOXYHEMOGLOBIN 0.3 % (0.5-1.5); BG DEOXYHEMOGLOBIN 1.3 % (0.0-5.0); BG FRACTION INSPIRED OXYGEN 21; BG HCO3 ACT 25.7 mmol/L (22.0-26.0); BG METHEMOGLOBIN 0.3 % (0.0-1.5); BG OXYGEN SATURATION 98.7 % (92.0-98.5); BG OXYHEMOGLOBIN 98.1 % (94.0-97.0); BG PCO2 34.8 mmHg (35.0-45.0); BG PH 7.487 (7.350-7.450); BG PO2 138.7 mmHg (75.0-100.0); BG SAMPLE SITE RIGHT RADIAL; BG TOTAL HEMOGLOBIN 10.1 g/dL (12.0-18.0); BG VENT MODE ROOM AIR
[2019-02-10 14:19] LABS: T4 FREE 1.33 ng/dL (0.76-1.46)
[2019-02-10] MEDS ORDERED: DEXTROSE 50% WATER 50ML SYRINGE IV PRN (19:45)
[2019-02-10 19:59] LABS: CHLORIDE 106 mEq/L (98-107)
[2019-02-10 20:00] VITALS: BP 111/63
[2019-02-10] MEDS: PIPERACILLIN/TAZOBACTAM 2.25 G in DEXTROSE 5% WATER 50 ML IV SCH (20:07)
[2019-02-10] MEDS: ENOXAPARIN 40MG/0.4ML SYR SUBCUT SCH (20:07)
[2019-02-10] MEDS: BLOOD SUGAR DIAGNOSTIC STRIP TEST SCH (21:00)
[2019-02-10] MEDS: INSULIN LISPRO 100 UNITS/ML SUBCUT SCH (21:00)
[2019-02-10] MEDS: IPRATROPIUM/ALBUTEROL 0.5-3(2.5)MG/3ML NEB HHN SCH (21:59)
[2019-02-10 22:00] VITALS: BP 104/55
[2019-02-11] VITALS (12 sets, daily range): BP systolic 94–150; BP diastolic 44–90
[2019-02-11] MEDS: IPRATROPIUM/ALBUTEROL 0.5-3(2.5)MG/3ML NEB HHN SCH ×4 (01:17→22:41)
[2019-02-11] MEDS: PIPERACILLIN/TAZOBACTAM 2.25 G in DEXTROSE 5% WATER 50 ML IV SCH ×3 (01:42→14:38)
[2019-02-11] MEDS: DEXT 5%/0.45% NACL 1000ML 1,000 ML IV SCH ×2 (02:42→19:48)
[2019-02-11] MEDS: BLOOD SUGAR DIAGNOSTIC STRIP TEST SCH ×4 (05:59→21:08)
[2019-02-11 07:19] LABS: BASOPHILS % 1.7 % (0.0-2.0); HEMATOCRIT. 26.4 % (42.0-52.0); HEMOGLOBIN. 8.8 g/dL (14.0-18.0); LYMPHOCYTES % 22.6 % (20.0-50.0); MEAN CORPUSCULAR HEMOGLOBIN 29.4 pg (28.0-32.0); MEAN CORPUSCULAR VOLUME 88.2 fL (80.0-94.0); MEAN PLATELET VOLUME 9.1 fl (7.4-10.4); MONOCYTES % 4.6 % (2.0-8.0); NEUTROPHILS % 68.1 % (40.0-76.0); PLATELET 304 x1000/uL (130-400); RED CELL DISTRIBUTION WIDTH 15.4 % (11.6-14.6)
[2019-02-11] MEDS: INSULIN LISPRO 100 UNITS/ML SUBCUT SCH ×4 (07:20→21:11)
[2019-02-11 07:28] LABS: CHLORIDE 106 mEq/L (98-107)
[2019-02-11 07:35] LABS: LDL CHOLESTEROL 85 mg/dL (5-100)
[2019-02-11 07:37] LABS: HDL CHOLESTEROL 35 mg/dL (40-59); T4 FREE 1.12 ng/dL (0.76-1.46)
[2019-02-11] MEDS: ASPIRIN 81MG EC TABLET PO SCH (08:51)
[2019-02-11] MEDS ORDERED: LIDOCAINE HCL 1% 20ML VIAL (Pyxis) INJ ONE (10:52)
[2019-02-11] MEDS: LEVOTHYROXINE SODIUM 88MCG TABLET PEG SCH (12:00)
[2019-02-11] MEDS ORDERED: IPRATROPIUM/ALBUTEROL 0.5-3(2.5)MG/3ML NEB HHN PRN (16:15)
[2019-02-11] MEDS: ENOXAPARIN 40MG/0.4ML SYR SUBCUT SCH (17:01)
[2019-02-11] MEDS: LORAZEPAM 2MG/ML CPJ IV PRN ×2 (17:28→22:14)
[2019-02-11] MEDS: PIPERACILLIN/TAZOBACTAM 3.375 G in DEXT 5% WATER 100 ML IV SCH (19:54)
[2019-02-12] VITALS (13 sets, daily range): BP systolic 90–143; BP diastolic 37–99
[2019-02-12] MEDS: PIPERACILLIN/TAZOBACTAM 3.375 G in DEXT 5% WATER 100 ML IV SCH ×4 (03:09→18:33)
[2019-02-12] MEDS: IPRATROPIUM/ALBUTEROL 0.5-3(2.5)MG/3ML NEB HHN SCH ×4 (03:15→20:25)
[2019-02-12] MEDS: LORAZEPAM 2MG/ML CPJ IV PRN ×4 (03:53→19:45)
[2019-02-12] MEDS: LEVOTHYROXINE SODIUM 88MCG TABLET PEG SCH (06:04)
[2019-02-12] MEDS: BLOOD SUGAR DIAGNOSTIC STRIP TEST SCH ×4 (06:04→21:11)
[2019-02-12 07:28] LABS: CHLORIDE 109 mEq/L (98-107)
[2019-02-12] MEDS: INSULIN LISPRO 100 UNITS/ML SUBCUT SCH ×4 (07:35→21:00)
[2019-02-12] MEDS: ASPIRIN 81MG EC TABLET PO SCH (08:31)
[2019-02-12 15:07] LABS: HEMATOCRIT 27.5 % (42.0-52.0); HEMOGLOBIN 9.1 g/dL (14.0-18.0); MEAN CORPUSCULAR HEMOGLOBIN 29.1 pg (28.0-32.0); PLATELET 292 x1000/uL (130-400); RED BLOOD CELL COUNT 3.13 mill/uL (4.7-6.1); RED CELL DISTRIBUTION WIDTH 15.2 % (11.6-14.6)
[2019-02-12] MEDS: ENOXAPARIN 40MG/0.4ML SYR SUBCUT SCH (17:03)
[2019-02-12] MEDS: DEXT 5%/0.45% NACL 1000ML 1,000 ML IV SCH (17:48)
[2019-02-13] VITALS (12 sets, daily range): BP systolic 97–146; BP diastolic 60–90
[2019-02-13] MEDS: PIPERACILLIN/TAZOBACTAM 3.375 G in DEXT 5% WATER 100 ML IV SCH ×4 (01:48→19:55)
[2019-02-13] MEDS: IPRATROPIUM/ALBUTEROL 0.5-3(2.5)MG/3ML NEB HHN SCH ×4 (02:00→20:23)
[2019-02-13] MEDS: LORAZEPAM 2MG/ML CPJ IV PRN ×4 (02:15→23:56)
[2019-02-13] MEDS: DEXT 5%/0.45% NACL 1000ML 1,000 ML IV SCH ×2 (04:47→21:29)
[2019-02-13] MEDS: LEVOTHYROXINE SODIUM 88MCG TABLET PEG SCH (06:30)
[2019-02-13] MEDS: INSULIN LISPRO 100 UNITS/ML SUBCUT SCH ×4 (06:31→21:00)
[2019-02-13] MEDS: BLOOD SUGAR DIAGNOSTIC STRIP TEST SCH ×4 (06:44→21:28)
[2019-02-13] MEDS: ASPIRIN 81MG EC TABLET PO SCH (09:23)
[2019-02-13] MEDS: ENOXAPARIN 40MG/0.4ML SYR SUBCUT SCH (18:37)
[2019-02-14] VITALS (12 sets, daily range): BP systolic 91–149; BP diastolic 39–84
[2019-02-14] MEDS: PIPERACILLIN/TAZOBACTAM 3.375 G in DEXT 5% WATER 100 ML IV SCH ×4 (01:41→18:02)
[2019-02-14] MEDS: IPRATROPIUM/ALBUTEROL 0.5-3(2.5)MG/3ML NEB HHN SCH ×4 (02:25→20:51)
[2019-02-14] MEDS: LORAZEPAM 2MG/ML CPJ IV PRN ×3 (04:16→20:55)
[2019-02-14] MEDS: INSULIN LISPRO 100 UNITS/ML SUBCUT SCH ×4 (06:36→20:55)
[2019-02-14] MEDS: BLOOD SUGAR DIAGNOSTIC STRIP TEST SCH ×4 (06:38→20:48)
[2019-02-14] MEDS: LEVOTHYROXINE SODIUM 88MCG TABLET PEG SCH (06:38)
[2019-02-14] MEDS: ASPIRIN 81MG EC TABLET PO SCH (08:16)
[2019-02-14] MEDS: DEXT 5%/0.45% NACL 1000ML 1,000 ML IV SCH (14:02)
[2019-02-14] MEDS: ENOXAPARIN 40MG/0.4ML SYR SUBCUT SCH (17:12)
== END 2019-02-14 21:21 | DRG 871 ==
LOC: ER 00:27 → 3WST 05:19 → EDBEDREQ 05:27 → EDBEDREQTM 05:27 → ENRESERV 15:32
PROVIDERS: ADMIT Internal Medicine; ATTEND Internal Medicine
PROC: 05HY33Z Insertion of Infusion Device into Upper Vein, Percutaneous Approach (ICD-10-PCS; principal; 2019-02-12)
PROC: B54MZZA Ultrasonography of Right Upper Extremity Veins, Guidance (ICD-10-PCS; 2019-02-12)
DX: A41.9 Sepsis, unspecified organism (principal); E43 Unspecified severe protein-calorie malnutrition; G92 Toxic encephalopathy; R65.21 Severe sepsis with septic shock; N17.9 Acute kidney failure, unspecified; I50.32 Chronic diastolic (congestive) heart failure; N39.0 Urinary tract infection, site not specified; E87.2 Acidosis; E03.9 Hypothyroidism, unspecified; E11.649 Type 2 diabetes mellitus with hypoglycemia without coma; I11.0 Hypertensive heart disease with heart failure; E86.0 Dehydration; F03.90 Unspecified dementia, unspecified severity, without behavioral disturbance, psychotic disturbance, mood disturbance, and anxiety; E78.5 Hyperlipidemia, unspecified; J44.9 Chronic obstructive pulmonary disease, unspecified; Z96.641 Presence of right artificial hip joint; I49.3 Ventricular premature depolarization; T50.995A Adverse effect of other drugs, medicaments and biological substances, initial encounter; I95.9 Hypotension, unspecified; Z93.1 Gastrostomy status; Z74.01 Bed confinement status; Z79.4 Long term (current) use of insulin; Z79.899 Other long term (current) drug therapy; Y92.89 Other specified places as the place of occurrence of the external cause; Z68.21 Body mass index [BMI] 21.0-21.9, adult
CPT/HCPCS: 36415; 36573; 36600; 71045; 80048; 80061; 81003; 82375; 82805; 82962; 83605; 84145; 84439; 84443; 84481; 84484; 85027; 86850; 86900; 93005; 93970; 94640; 96365; 99291; A6261; C1725; J1200; J1650; J1815; J2060; J2270; J2405; J2543; J3370; J3490; J7030; J7060; J7620